=== PATIENT | male | born 1955 | race Caucasian/White ===

== ENCOUNTER → 2016-05-19 | Day surgery (SDC) | payer OTHER ==
[2016-05-18 15:03] VITALS: BMI 20.1
[~2016-05-19] MED LIST: BENZOCAINE SPRAY 100 APPLIC/CAN MUCOUS MEM ONE; BENZOCAINE SPRAY 100 APPLIC/CAN ONE; MIDAZOLAM 2 MG/2 ML VIAL IV ONE; SODIUM CHLORIDE 0.9% 1,000 ML IV SCH; SODIUM CHLORIDE 0.9% 250 ML IV ONE; fentaNYL (PF) 50 MCG/ML 2 ML AMP IV ONE
[2016-05-19 07:01] VITALS: RESP 18
--- NOTE | 2016-05-19 08:16 | ECHOT ---
DATE OF SERVICE: INDICATION: Ascending aortic aneurysm. PROCEDURE NOTE: After obtaining informed consent, transesophageal echocardiogram is performed in the left lateral position using an Omniplane probe. Local and IV sedation were obtained by 3 mg of Versed, 50 mcg of fentanyl and Xylocaine spray. Patient tolerated the procedure well without any obvious immediate complication. FINDINGS: 1. There is evidence of aneurysm of the sinus of Valsalva. At its widest dimension, it measures 4.6 cm. At the level of the aortic leaflets, the aorta measures 2.3 cm and ascending aorta measures 3.4 cm. It is a 3 leaflet valve and there is no evidence of aortic stenosis or regurgitation. 2. Mitral valve appears anatomically normal. There is mild mitral regurgitation noted. 3. Tricuspid valve appears normal. There is no evidence of stenosis or regurgitation. 4. Left ventricle has normal size and systolic function. 5. Left atrium, right atrium, right ventricle seen within normal limits. 6. Interatrial septum: There is no evidence of caej-jk-[id number] shunt by color flow Doppler or [id number] shunt by agitated saline contrast study. CONCLUSION: Sinus of Valsalva aneurysm measuring 4.6 cm is noted.
[2016-05-19 08:52] VITALS: BP 98/63; PULSE 81; TEMP 98
== END ==
LOC: CATHCVL 06:29
PROVIDERS: ATTEND Internal Medicine Cardiovascular Disease
DX: I71.2 Thoracic aortic aneurysm, without rupture (principal); F41.9 Anxiety disorder, unspecified; Z79.899 Other long term (current) drug therapy; Z87.891 Personal history of nicotine dependence
CPT/HCPCS: 93312; 93320; 93325; J2250; J3010

== ENCOUNTER → 2016-06-21 | Outpatient (CLI) | payer OTHER ==
[2016-06-22 15:39] LABS: HCV Qualitative Result Not detected (Not detected)
== END | disposition home or self-care (01) ==
LOC: LABWHC1 16:47
DX: B18.2 Chronic viral hepatitis C (principal)
CPT/HCPCS: 36415; 82105; 87522

== ENCOUNTER → 2017-04-04 | Outpatient (CLI) | payer OTHER ==
[2017-04-04 12:54] LABS: Bilirubin, Delta 0.1 mg/dL (0.0-0.2); Total Bilirubin 0.1 mg/dL (0.2-1.3); Total Protein 5.9 g/dL (6.3-8.2)
== END | disposition home or self-care (01) ==
LOC: LABWHC1 11:32
DX: R74.8 Abnormal levels of other serum enzymes (principal)
CPT/HCPCS: 36415; 80076

== ENCOUNTER → 2017-07-29 | Outpatient (CLI) | payer OTHER ==
--- NOTE | 2017-07-31 15:52 | PE ---
Nuclear medicine PET/CT HISTORY: Esophageal carcinoma, C 50.5, initial Patient received 14.2 mCi F-18 FDG intravenously in delayed scanning performed from the skull base to the mid thighs. Localization and attenuation correction CT scan was performed. No comparisons Neck and chest: There is diffuse hypermetabolic uptake involving the esophagus distally extending int o the region of the gastroesophageal junction, there is a hiatal hernia present. SUV is 10.6 and exte nds circumferentially, there is associated wall thickening. Mild uptake also present within the stoma ch, stomach wall is thickened. There is a lymph node present posterior to the midthoracic esophagus w hich shows associated hypermetabolic uptake, SUV is 5.6. Smaller node shows lesser uptake. At the lev el of the superior mediastinum there is a focus of hypermetabolic uptake, probable tiffani activity, BROWN V 4.5. Extensive emphysematous changes are present within the lungs. No pleural or pericardial effusion. Abdomen pelvis: No retroperitoneal adenopathy or hypermetabolic uptake. Uptake in the bowel is likely physiologic. There is uptake seen within the bladder which is likely physiologic, there is a focal c ystic area posterior to the bladder deep within the pelvis measuring 7.6 x 6 cm in size displacing th e bowel which shows hypermetabolic uptake similar to the bladder. Appears to be separate from the leon dder however. Prostate is enlarged. Diverticular changes associated with the sigmoid colon. Osseous structures: Bilateral spondylolysis at L5. Facet arthropathy in the lower lumbar spine. Degen erative disc changes are also present. Some hypermetabolic uptake present in the posterior aspect of the proximal right femur at the level of the greater trochanter without definite destructive lesion. SUV is 4.7. IMPRESSION: Esophageal carcinoma and metastatic disease. Indeterminate collection within the pelvis, question a large diverticulum.
== END | disposition home or self-care (01) ==
LOC: RADPETMAIN 11:46
PROVIDERS: ATTEND Internal Medicine Hematology & Oncology
DX: C15.5 Malignant neoplasm of lower third of esophagus (principal); C79.9 Secondary malignant neoplasm of unspecified site
CPT/HCPCS: 78815; A9552

== ENCOUNTER → 2017-08-08 | Outpatient (CLI) | payer OTHER ==
--- NOTE | 2017-08-09 01:34 | MR ---
EXAMINATION TYPE: MR hip RT wo con DATE OF EXAM: 08/08/2017 COMPARISON: NONE HISTORY: Esphogeal Cancer / Abnormal Scan Standard multiplanar, multisequence MRI departmental protocol Multiplanar, multisequence images of the right hip were acquired. . FINDINGS: On the T1 images there is a 5 x 3 cm area of decreased signal in the lateral aspect of the intertrochanteric right femur. I see no fracture line. There is on the STIR images edema around this lesion in the intertrochanteric femur. There is soft tissue edema posterior to the intertrochanteric femur that measures up to 15 mm in thickness. On the sagittal images there appears to be mass extensi on into the posterior soft tissues that measures 2 cm in thickness. IMPRESSION: Large lesion that appears to originate within the intertrochanteric right femur with tumor extension into the posterior and lateral soft tissues and consistent with metastatic disease in this patient wi th a history of esophageal cancer. No fracture seen. The size is probably not changed compared to the PET/CT scan of 07/29/2017.
== END | disposition home or self-care (01) ==
LOC: RADMRIMAIN 14:05
PROVIDERS: ATTEND Internal Medicine Hematology & Oncology
DX: C15.9 Malignant neoplasm of esophagus, unspecified (principal)

== ENCOUNTER → 2017-08-22 | Outpatient (CLI) | payer OTHER ==
--- NOTE | 2017-08-23 10:14 | ECHOF ---
Referral Reason:C15.5 Z01.818 esophogeal CA and Pre Chemo MEASUREMENTS -------- HEIGHT: 167.6 cm WEIGHT: 59.0 kg BP: RVIDd: 2.5 cm (< 3.3) IVSd: 0.7 cm (0.6 - 1.1) LVIDd: 4.1 cm (3.9 - 5.3) LVPWd: 0.7 cm (0.6 - 1.1) IVSs: 1.1 cm LVIDs: 1.5 cm LVPWs: 1.5 cm Ao Diam: 4.5 cm (2.0 - 3.7) AV Cusp: 2.2 cm (1.5 - 2.6) LA Diam: 2.2 cm (2.7 - 3.8) MV EXCURSION: 21.866 mm (> 18.000) MV EF SLOPE: 281 mm/s (70 - 150) EPSS: 0.2 cm MV E Elieser: 0.63 m/s MV DecT: 193 ms MV A Elieser: 0.56 m/s MV E/A Ratio: 1.12 RAP: 5.00 mmHg RVSP: 44.53 mmHg FINDINGS -------- Sinus rhythm. This was a technically difficult study with suboptimal apical views. The left ventricular size is normal. Left ventricular wall thickness is normal. Overall left vent ricular systolic function is normal with, an EF between 55 - 60 %. The right ventricle is mildly enlarged. The left atrium is normal in size. The right atrium is normal in size. Aortic valve is trileaflet and is mildly thickened. The mitral valve leaflets are mildly thickened. Mild mitral regurgitation is present. Moderate tricuspid regurgitation present. There is mild pulmonary hypertension. The right ventric ular systolic pressure, as measured by Doppler, is 44.53mmHg. Pulmonic valve appears structurally normal. The aortic root is moderately dilated measuring 4.5 cm. CONCLUSIONS -------- 1. Sinus rhythm. 2. This was a technically difficult study with suboptimal apical views. 3. The left ventricular size is normal. 4. Left ventricular wall thickness is normal. 5. Overall left ventricular systolic function is normal with, an EF between 55 - 60 %. 6. The right ventricle is mildly enlarged. 7. The left atrium is normal in size. 8. The right atrium is normal in size. 9. Aortic valve is trileaflet and is mildly thickened. 10. The mitral valve leaflets are mildly thickened. 11. Mild mitral regurgitation is present. 12. Moderate tricuspid regurgitation present. 13. There is mild pulmonary hypertension. 14. The right ventricular systolic pressure, as measured by Doppler, is 44.53mmHg. 15. Pulmonic valve appears structurally normal. 16. The aortic root is moderately dilated measuring 4.5 cm. OCCUPATIONAL THERAPY ASSISTANT: Deborah Cunningham RDCS
== END | disposition home or self-care (01) ==
LOC: RADECHMAIN 13:10
PROVIDERS: ATTEND Internal Medicine Hematology & Oncology
DX: Z01.818 Encounter for other preprocedural examination (principal); I27.20 Pulmonary hypertension, unspecified; I08.1 Rheumatic disorders of both mitral and tricuspid valves; C15.5 Malignant neoplasm of lower third of esophagus
CPT/HCPCS: 93306

== ENCOUNTER 2017-08-24 13:00 | Day surgery (SDC) | payer OTHER ==
[2017-08-22 12:03] VITALS: BMI 20.9
[~2017-08-24 13:00] MED LIST changes: -BENZOCAINE SPRAY 100 APPLIC/CAN MUCOUS MEM ONE; -BENZOCAINE SPRAY 100 APPLIC/CAN ONE; +HEPARIN SODIUM,PORCINE 5,000 UNIT/ML 1 ML VIAL SQ ONE; +HYDROmorphone 0.5 MG/0.5 ML SYRINGE IVP PRN; +LACTATED RINGERS 1,000 ML IV SCH; +LIDOCAINE 1% 20 ML VIAL (10MG/ML) FOR IV START INTRADERMA PRN; -MIDAZOLAM 2 MG/2 ML VIAL IV ONE; +MORPHINE SULFATE 4 MG/ML SYRINGE IV PRN; +ONDANSETRON 4 MG/2 ML VIAL IVP PRN; +Pre Op ABX Message 1 EACH MISC MISCELLANE ONE; -SODIUM CHLORIDE 0.9% 1,000 ML IV SCH; -SODIUM CHLORIDE 0.9% 250 ML IV ONE; -fentaNYL (PF) 50 MCG/ML 2 ML AMP IV ONE
[2017-08-24] MEDS ORDERED: LIDOCAINE 1% 20 ML VIAL (10MG/ML) FOR IV START INTRADERMA ONE (13:30)
[2017-08-24] MEDS ORDERED: LIDOCAINE 1% INJ 10MG/ML (20 ML MDV) SQ ONE ×2 (13:48)
[2017-08-24] MEDS ORDERED: PROPOFOL 10 MG/ML 20 ML VIAL IV ONE (14:31)
[2017-08-24] MEDS ORDERED: fentaNYL (PF) 50 MCG/ML 2 ML AMP ONE (14:31)
[2017-08-24] MEDS ORDERED: MIDAZOLAM 2 MG/2 ML VIAL ONE (14:31)
[2017-08-24] MEDS ORDERED: LACTATED RINGERS 1,000 ML IV ONE ×2 (14:45)
[2017-08-24] MEDS ORDERED: HYDROcodone/APAP 5-325MG 1 EACH TAB PO PRN (15:13)
[2017-08-24] MEDS ORDERED: NALOXONE 0.4 MG/ML 1 ML VIAL IV PRN (15:13)
--- NOTE | 2017-08-24 15:15 | P.OP ---
Date of Procedure: 08/24/17 Procedure(s) Performed: PREOPERATIVE DIAGNOSIS: Esophageal cancer POSTOPERATIVE DIAGNOSIS: Same PROCEDURE: Port-A-Cath placement SURGEON: Samantha EBL: Minimal ANESTHESIA: Sedation COMPLICATIONS: None OPERATIVE PROCEDURE: Patient was brought and placed on the operative table in the supine position. The patient was sedated per anesthesia that time. The chest and neck were prepped and draped in usual sterile fashion. The ultrasound probe was used to identify the location of the right internal jugular vein. The skin was localized with lidocaine. The Seldinger needle was advanced into the IJ under ultrasound guidance. The wire was advanced through the needle under fluoroscopic guidance into the superior vena cava. A port pocket was created in the right infraclavicular location. The catheter was tunneled from the wire entrance site to the port pocket. The port was then connected to the catheter. The dilator introducer was threaded over the guidewire. The guidewire and dilator were then removed. The catheter was advanced through the introducer and introducer was then removed. The tip was seen to be in the right atrial junction. Port was flushed with both saline and a Hep-Lock solution. There was good flow both in and out of the port. The port was sutured in underlying tissues using 3-0 silk sutures. The subcutaneous tissues were reapproximated using 3-0 Vicryl sutures and the skin at both locations using 4-0 Monocryl sutures. Steri-Strips and sterile dressings then applied. DISPOSITION: Stable to recovery room
[2017-08-24 15:36] VITALS: TEMP 98.6
--- NOTE | 2017-08-24 16:12 | XR ---
EXAMINATION TYPE: XR chest 1V confirm line [facility] [place] DATE OF EXAM: 08/24/2017 COMPARISON: Prior chest 05/04/2016 HISTORY: Status post Port-A-Cath placement TECHNIQUE: Single frontal view of the chest is obtained. FINDINGS: Right-sided Port-A-Cath is present, port is in the right pectoral region, there is a jugul ar puncture, distal tip of the catheter is overlying the region of the superior vena cava. No evident pneumothorax or pleural effusion. No other interval change. IMPRESSION: No evident complication status post central venous catheter placement
--- NOTE | 2017-08-24 16:17 | FL ---
Fluoroscopy HISTORY: Port-A-Cath insertion 14 seconds fluoroscopy time supplied to the referring clinician. 1 intraoperative C-arm images docum ent the procedure. See dictated report from general surgery.
[2017-08-24 16:25] VITALS: RESP 16
[2017-08-24 16:40] VITALS: BP 106/71; PULSE 94
== END 2017-08-24 17:12 | disposition home or self-care (01) ==
LOC: OR 13:00
PROVIDERS: ATTEND Surgery
DX: C15.9 Malignant neoplasm of esophagus, unspecified (principal); J44.9 Chronic obstructive pulmonary disease, unspecified; Z79.899 Other long term (current) drug therapy; Z87.891 Personal history of nicotine dependence
CPT/HCPCS: 77001; 36561; C1788; J2250; J1644; J2405; J2001; J3010; J1642; J2704

== ENCOUNTER 2017-08-29 15:55 | Inpatient (IN) | payer OTHER ==
[2017-08-29 16:25] LABS: Glucose,Whole Blood 128 mg/dL (75-99)
[2017-08-29] MEDS ORDERED: SODIUM CHLORIDE 0.9% 1,000 ML IV STA (16:25)
--- NOTE | 2017-08-29 16:28 | ED ---
General Adult HPI - General Chief complaint: Recheck/Abnormal Lab/Rx Stated complaint: Dehydrted, Weakness, NV, Low BP Time Seen by Provider: 08/29/17 16:18 Source: patient, RN notes reviewed Mode of arrival: ambulatory Limitations: no limitations - History of Present Illness Initial comments: Patient is a pleasant 62-year-old male presenting to the emergency department for generalized weakness. Onset of symptoms was yesterday. Patient felt lightheaded. Patient has a known history of esophageal and cancer. Patient is unclear which one is primary. Patient is currently undergoing radiation treatment to the right hip. Patient is planned to start in the next week. Patient has decreased appetite and decreased oral intake. Patient has had some nausea. Patient was at oncology and recommended come to the emergency department secondary to low blood pressure. - Related Data Home Medications Medication Instructions Recorded Confirmed Albuterol Inhaler [Ventolin Hfa 1 - 2 puff INHALATION Q6HR PRN 05/18/16 08/29/17 Inhaler] ALPRAZolam [Xanax] 0.25 mg PO BID PRN 08/22/17 08/29/17 Dexamethasone See Taper PO DIRECTED 08/29/17 08/29/17 Diazepam [Valium] 10 mg PO Q8H PRN 08/29/17 08/29/17 Mirtazapine [Remeron] 45 mg PO HS 08/29/17 08/29/17 Omeprazole [PriLOSEC] 40 mg PO DAILY 08/29/17 08/29/17 oxyCODONE-APAP 10-325MG [Percocet 1 tab PO Q6HR PRN 08/29/17 08/29/17 10-325 mg] Allergies Allergy/AdvReac Type Severity Reaction Status Date / Time No Known Allergies Allergy Verified 08/29/17 16:46 Review of Systems ROS Statement: Those systems with pertinent positive or pertinent negative responses have been documented in the HPI. ROS Other: All systems not noted in ROS Statement are negative. Constitutional: Denies: fever Eyes: Denies: eye pain ENT: Denies: ear pain Respiratory: Denies: cough Cardiovascular: Denies: chest pain Endocrine: Reports: fatigue Gastrointestinal: Reports: nausea Genitourinary: Denies: dysuria Musculoskeletal: Denies: back pain Skin: Denies: rash Neurological: Reports: weakness (Generalized) Past Medical History Past Medical History: Asthma, Cancer, COPD, GERD/Reflux, Skin Disorder Additional Past Medical History / Comment(s): generalized rash on trunk, past hx. collapsed lung 5 yrs. ago History of Any Multi-Drug Resistant Organisms: None Reported Past Surgical History: Hernia Repair Additional Past Surgical History / Comment(s): colonoscopy Past Anesthesia/Blood Transfusion Reactions: No Reported Reaction Past Psychological History: Anxiety, Depression Smoking Status: Former smoker Past Alcohol Use History: None Reported Past Drug Use History: None Reported - Past Family History Mother Family Medical History: Cancer, CVA/TIA General Exam Limitations: no limitations General appearance: alert, in no apparent distress Head exam: Present: atraumatic Eye exam: Present: normal appearance, PERRL ENT exam: Present: mucous membranes dry Neck exam: Present: normal inspection Respiratory exam: Present: normal lung sounds bilaterally Cardiovascular Exam: Present: tachycardia GI/Abdominal exam: Present: soft. Absent: tenderness Extremities exam: Present: normal inspection Neurological exam: Present: alert, CN II-XII intact. Absent: motor sensory deficit Expanded Motor strength exam: RUE: 5, LUE: 5, RLE: 5, LLE: 5 Psychiatric exam: Present: normal affect, normal mood Skin exam: Present: normal color Course Vital Signs 08/29/17 08/29/17 08/29/17 15:59 16:28 17:06 Temperature 98.5 F Pulse Rate 105 H 93 92 Respiratory 20 18 18 Rate Blood Pressure 75/49 95/63 102/67 O2 Sat by Pulse 99 98 100 Oximetry 08/29/17 08/29/17 08/29/17 17:50 18:00 18:09 Temperature 98.2 F 98 F 97.8 F Pulse Rate 88 89 89 Respiratory 18 18 18 Rate Blood Pressure 95/60 91/62 97/65 O2 Sat by Pulse 98 100 Oximetry 08/29/17 08/29/17 08/29/17 18:25 18:40 18:54 Temperature 98.1 F 98.2 F 98.4 F Pulse Rate 95 92 94 Respiratory 18 18 18 Rate Blood Pressure 107/70 99/64 97/64 O2 Sat by Pulse Oximetry EKG Findings - EKG Comments: EKG Findings:: Sinus tachycardia 102. SC 124. QRS 84. QT 362. QTC 471. Normal axis. Low QRS voltage. No acute ST change. Medical Decision Making - Medical Decision Making Patient reevaluated and resting comfortably in bed. Patient states he is starting to feel better. Blood pressure has improved. Patient updated on results and plan. Patient states he did have several episodes of coffee-ground emesis several days ago. Case was discussed in detail with Dr. Roque, who will admit for Dr. Pires. Case is also discussed with Dr. Castellon, who will consult for Dr. Pedroza. - Lab Data Result diagrams: 08/29/17 16:27 08/29/17 16:27 Lab Results 08/29/17 08/29/17 08/29/17 Range/Units 16:08 16:27 16:27 WBC 14.6 H (3.8-10.6) k/uL RBC 2.34 L (4.30-5.90) m/uL Hgb 6.0 L* (13.0-17.5) gm/dL Hct 19.6 L* (39.0-53.0) % MCV 83.9 (80.0-100.0) fL MCH 25.5 (25.0-35.0) pg MCHC 30.4 L (31.0-37.0) g/dL RDW 16.6 H (11.5-15.5) % Plt Count 306 (150-450) k/uL Neutrophils % 97 % Lymphocytes % 2 % Monocytes % 1 % Eosinophils % 0 % Basophils % 0 % Neutrophils # 14.1 H (1.3-7.7) k/uL Lymphocytes # 0.3 L (1.0-4.8) k/uL Monocytes # 0.2 (0-1.0) k/uL Eosinophils # 0.0 (0-0.7) k/uL Basophils # 0.0 (0-0.2) k/uL Hypochromasia Marked Poikilocytosis Slight Anisocytosis Slight PT (9.0-12.0) sec INR (<1.2) APTT (22.0-30.0) sec Sodium (137-145) mmol/L Potassium (3.5-5.1) mmol/L Chloride (98-107) mmol/L Carbon Dioxide (22-30) mmol/L Anion Gap mmol/L BUN (9-20) mg/dL Creatinine (0.66-1.25) mg/dL Est GFR (CKD-EPI)AfAm (>60 ml/min/1.73 sqM) Est GFR (CKD-EPI)NonAf (>60 ml/min/1.73 sqM) Glucose (74-99) mg/dL POC Glucose (mg/dL) 128 H (75-99) mg/dL POC Glu [employer] Imp[employer] ID Amanda Haro Calcium (8.4-10.2) mg/dL Phosphorus (2.5-4.5) mg/dL Magnesium (1.6-2.3) mg/dL Total Bilirubin (0.2-1.3) mg/dL AST (17-59) U/L ALT (21-72) U/L Alkaline Phosphatase (38-126) U/L Total Creatine Kinase 47 L (55-170) U/L CK-MB (CK-2) 0.9 (0.0-2.4) ng/mL CK-MB (CK-2) Rel Index 1.9 Troponin I <0.012 (0.000-0.034) ng/mL Total Protein (6.3-8.2) g/dL Albumin (3.5-5.0) g/dL TSH (0.465-4.680) mIU/L Free T4 (0.78-2.19) ng/dL Free T3 pg/mL (2.8-5.3) pg/ml Blood Type Blood Type Recheck Antibody Screen Crossmatch Spec Expiration Date 08/29/17 08/29/17 08/29/17 Range/Units 16:27 16:27 16:27 WBC (3.8-10.6) k/uL RBC (4.30-5.90) m/uL Hgb (13.0-17.5) gm/dL Hct (39.0-53.0) % MCV (80.0-100.0) fL MCH (25.0-35.0) pg MCHC (31.0-37.0) g/dL RDW (11.5-15.5) % Plt Count (150-450) k/uL Neutrophils % % Lymphocytes % % Monocytes % % Eosinophils % % Basophils % % Neutrophils # (1.3-7.7) k/uL Lymphocytes # (1.0-4.8) k/uL Monocytes # (0-1.0) k/uL Eosinophils # (0-0.7) k/uL Basophils # (0-0.2) k/uL Hypochromasia Poikilocytosis Anisocytosis PT 9.5 (9.0-12.0) sec INR 0.9 (<1.2) APTT 20.9 L (22.0-30.0) sec Sodium 139 (137-145) mmol/L Potassium 4.7 (3.5-5.1) mmol/L Chloride 102 (98-107) mmol/L Carbon Dioxide 21 L (22-30) mmol/L Anion Gap 16 mmol/L BUN 24 H (9-20) mg/dL Creatinine 0.80 (0.66-1.25) mg/dL Est GFR (CKD-EPI)AfAm >90 (>60 ml/min/1.73 sqM) Est GFR (CKD-EPI)NonAf >90 (>60 ml/min/1.73 sqM) Glucose 120 H (74-99) mg/dL POC Glucose (mg/dL) (75-99) mg/dL POC Glu [employer] ID Calcium 9.2 (8.4-10.2) mg/dL Phosphorus 4.8 H (2.5-4.5) mg/dL Magnesium 1.9 (1.6-2.3) mg/dL Total Bilirubin <0.1 L (0.2-1.3) mg/dL AST 18 (17-59) U/L ALT 18 L (21-72) U/L Alkaline Phosphatase 40 (38-126) U/L Total Creatine Kinase (55-170) U/L CK-MB (CK-2) (0.0-2.4) ng/mL CK-MB (CK-2) Rel Index Troponin I (0.000-0.034) ng/mL Total Protein 5.9 L (6.3-8.2) g/dL Albumin 3.8 (3.5-5.0) g/dL TSH 0.973 (0.465-4.680) mIU/L Free T4 1.58 (0.78-2.19) ng/dL Free T3 pg/mL 4.0 (2.8-5.3) pg/ml Blood Type O Positive Blood Type Recheck No Antibody Screen NEGATIVE Crossmatch See Detail Spec Expiration Date 09/01/2017 - 2903 - Radiology Data Radiology results: image reviewed (Chest x-ray shows no active cardiopulmonary disease.) Disposition Clinical Impression: Anemia, Upper GI hemorrhage Disposition: ADMITTED IP TO THIS HOSP Condition: Serious Is patient prescribed a controlled substance at d/c from ED?: No Referrals: Sri Acosta MD [Primary Care Provider] - 1-2 days Decision Time: 19:22
[2017-08-29 16:39] LABS: Anisocytosis Slight; Basophils % (A) 0 %; Eosinophils % (A) 0 %; Hypochromasia Marked; Lymphocytes # (A) 0.3 k/uL (1.0-4.8); Lymphocytes % (A) 2 %; MCH 25.5 pg (25.0-35.0); MCHC 30.4 g/dL (31.0-37.0); MCV 83.9 fL (80.0-100.0); Mean Platelet Volume 8.2; Monocytes # (A) 0.2 k/uL (0-1.0); Monocytes % (A) 1 %; Neutrophils # (A) 14.1 k/uL (1.3-7.7); Neutrophils % (A) 97 %; Platelet Count 306 k/uL (150-450); Poikilocytosis Slight; RBC 2.34 m/uL (4.30-5.90); RDW 16.6 % (11.5-15.5); WBC 14.6 k/uL (3.8-10.6)
[2017-08-29 16:47] LABS: HCT 19.6 % (39.0-53.0)
[2017-08-29 16:54] LABS: ALT 18 U/L (21-72); AST 18 U/L (17-59); Albumin 3.8 g/dL (3.5-5.0); Alkaline Phosphatase 40 U/L (38-126); Anion Gap 16 mmol/L; Blood Urea Nitrogen 24 mg/dL (9-20); Calcium 9.2 mg/dL (8.4-10.2); Carbon Dioxide 21 mmol/L (22-30); Chloride 102 mmol/L (98-107); Glucose 120 mg/dL (74-99); Magnesium 1.9 mg/dL (1.6-2.3); Phosphorus 4.8 mg/dL (2.5-4.5); Potassium 4.7 mmol/L (3.5-5.1); Sodium 139 mmol/L (137-145); Total Bilirubin <0.1 mg/dL (0.2-1.3); Total Protein 5.9 g/dL (6.3-8.2)
[2017-08-29 16:56] LABS: INR 0.9 (<1.2); Prothrombin Time 9.5 sec (9.0-12.0)
[2017-08-29 16:57] LABS: Partial Thromboplastin Time 20.9 sec (22.0-30.0)
[2017-08-29 16:59] LABS: Creatine Kinase 47 U/L (55-170)
[2017-08-29 17:08] LABS: T4, Free (Free Thyroxine) 1.58 ng/dL (0.78-2.19)
--- NOTE | 2017-08-29 17:09 | XR ---
EXAMINATION TYPE: XR chest 2V DATE OF EXAM: 08/29/2017 COMPARISON: 08/24/2017 HISTORY: Weakness TECHNIQUE: Frontal and lateral views of the chest are obtained. FINDINGS: There is no heart failure nor confluent pneumonic infiltrate. There are chest leads. Costo phrenic angles are clear. Heart size is normal. Bony thorax appears intact. IMPRESSION: No active cardiopulmonary disease. No change.
[2017-08-29 17:12] LABS: Creatine Kinase MB 0.9 ng/mL (0.0-2.4); Troponin I <0.012 ng/mL (0.000-0.034)
[2017-08-29] MEDS ORDERED: NALOXONE 0.4 MG/ML 1 ML VIAL IV PRN (19:22)
[2017-08-29] MEDS ORDERED: PANTOPRAZOLE 40 MG/10 ML VIAL IV SCH (19:30)
[2017-08-29] MEDS ORDERED: LORazepam 2 MG/ML INJ IV PRN ×3 (21:29)
[2017-08-29] MEDS ORDERED: NON-FORMULARY DRUG (Omeprazole 40 MG) PO SCH (21:30)
[2017-08-29] MEDS: SODIUM CHLORIDE 0.9% 1,000 ML IV SCH (22:29)
[2017-08-29] MEDS: PANTOPRAZOLE 40 MG/10 ML VIAL IVP SCH (22:31)
[2017-08-29] MEDS: MIRTAZAPINE 45 MG TABLET PO SCH (22:31)
[2017-08-30] MEDS: oxyCODONE-APAP 10-325MG 1 EACH TAB PO PRN ×3 (00:30→12:51)
[2017-08-30 00:44] LABS: Appearance,Urine Clear (Clear); Bilirubin,Urine Negative (Negative); Blood,Urine Negative (Negative); Color,Urine Light Yellow; Glucose,Urine (UA) Negative (Negative); Ketones,Urine 1+ (Negative); Leukocyte Esterase,Urine Negative (Negative); Nitrite,Urine Negative (Negative); PH, Urine 6.5 (5.0-8.0); Protein,Urine Negative (Negative); Specific Gravity,Urine 1.009 (1.001-1.035); Urobilinogen,Urine <2.0 mg/dL (<2.0)
[2017-08-30] MEDS: SODIUM CHLORIDE 0.9% 1,000 ML IV SCH ×2 (06:11→08:30)
[2017-08-30 06:52] LABS: Basophils % (A) 0 %; Eosinophils % (A) 0 %; HCT 25.1 % (39.0-53.0); Hypochromasia Slight; Lymphocytes # (A) 0.7 k/uL (1.0-4.8); Lymphocytes % (A) 14 %; MCH 26.6 pg (25.0-35.0); MCHC 31.8 g/dL (31.0-37.0); MCV 83.6 fL (80.0-100.0); Mean Platelet Volume 7.8; Monocytes # (A) 0.4 k/uL (0-1.0); Monocytes % (A) 8 %; Neutrophils # (A) 3.6 k/uL (1.3-7.7); Neutrophils % (A) 75 %; Platelet Count 212 k/uL (150-450); Poikilocytosis Moderate; RDW 15.8 % (11.5-15.5); WBC 4.8 k/uL (3.8-10.6)
[2017-08-30] MEDS: PANTOPRAZOLE 40 MG/10 ML VIAL IVP SCH ×2 (08:30→20:19)
[2017-08-30] MEDS: ALPRAZolam 0.25 MG TAB PO PRN (10:32)
[2017-08-30 11:45] LABS: Reticulocyte % 2.8 % (0.5-2.0)
--- NOTE | 2017-08-30 11:55 | P.HPIM ---
History of Present Illness H&P Date: 08/30/17 Alton Martinez is a 62-year-old male presenting to [facility] emergency department for generalized weakness. Patient felt lightheaded. 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 Patient is currently undergoing radiation treatment to the right hip. Patient started having some bloody vomiting 2 days ago, he was evaluated in the emergency room hemoglobin was down to 62 units of red blood cells transfusion were ordered and patient was admitted to telemetry floor gastroenterology consultation was requested. Also oncology consultation was requested for follow -up. Patient had a right subclavian port placed recently, patient has not started chemotherapy yet. He denies any previous history of coronary artery disease or congestive heart failure denies any history of diabetes or any lung disease. He states that he has a prolonged history of smoking he quit last months, he used to drink beer occasionally he quit drinking recently. Past Medical History Past Medical History: Asthma, Cancer, COPD, GERD/Reflux, Skin Disorder Additional Past Medical History / Comment(s): , past hx. collapsed lung 5 yrs, generalized rash on trunk ago, dx with esophageal CA with mets to bone right hip about 3 weeks ago, recieving radiation last tx 08/29/17 History of Any Multi-Drug Resistant Organisms: None Reported Past Surgical History: Hernia Repair Additional Past Surgical History / Comment(s): colonoscopy, EGD Past Anesthesia/Blood Transfusion Reactions: No Reported Reaction Past Psychological History: Anxiety, Depression Smoking Status: Former smoker Past Alcohol Use History: None Reported Additional Past Alcohol Use History / Comment(s): quit smoking 1 month ago, smoked for 25 yrs.-still an occasional cigarette sometimes up to 1/2 pack a day Past Drug Use History: None Reported Additional Drug Use History / Comment(s): occasional drinking. patient states sometimes 2-3 beers a night, sometimes more and sometimes less - Past Family History Mother Family Medical History: Cancer, CVA/TIA Medications and Allergies Home Medications Medication Instructions Recorded Confirmed Type Albuterol Inhaler [Ventolin Hfa 1 - 2 puff INHALATION Q6HR PRN 05/18/16 History Inhaler] ALPRAZolam [Xanax] 0.25 mg PO BID PRN 08/22/17 08/29/17 History Dexamethasone See Taper PO DIRECTED 08/29/17 08/29/17 History Diazepam [Valium] 10 mg PO Q8H PRN 08/29/17 08/29/17 History Mirtazapine [Remeron] 45 mg PO HS 08/29/17 08/29/17 History Omeprazole [PriLOSEC] 40 mg PO DAILY 08/29/17 08/29/17 History oxyCODONE-APAP 10-325MG [Percocet 1 tab PO Q6HR PRN 08/29/17 08/29/17 History 10-325 mg] Prochlorperazine [Compazine] 10 mg PO Q6H PRN #50 tab 08/30/17 Rx Allergies Allergy/AdvReac Type Severity Reaction Status Date / Time No Known Allergies Allergy Verified 08/29/17 16:46 Physical Exam Vitals: Vital Signs Temp Pulse Pulse Resp BP BP Pulse Ox 08/30/17 04:00 98.0 F 84 18 96/72 08/30/17 00:26 97.0 F L 95 18 104/68 96 08/30/17 00:00 97.6 F 88 18 106/68 97 08/29/17 23:18 97.9 F 86 18 108/61 99 08/29/17 22:34 98.4 F 87 18 102/62 99 08/29/17 22:14 98.2 F 86 18 103/64 98 08/29/17 22:04 98.8 F 88 18 102/61 99 08/29/17 21:54 97.0 F L 86 18 104/62 98 08/29/17 21:00 97.0 F L 84 18 118/72 100 08/29/17 20:26 97.8 F 82 18 109/71 100 08/29/17 19:54 97.8 F 87 18 103/67 08/29/17 18:54 98.4 F 94 18 97/64 08/29/17 18:40 98.2 F 92 18 99/64 08/29/17 18:25 98.1 F 95 18 107/70 08/29/17 18:09 97.8 F 89 18 97/65 08/29/17 18:00 98 F 89 18 91/62 100 08/29/17 17:50 98.2 F 88 18 95/60 98 08/29/17 17:06 92 18 102/67 100 08/29/17 16:28 93 18 95/63 98 08/29/17 15:59 98.5 F 105 H 20 75/49 99 Intake and Output 08/29/17 08/30/17 08/30/17 22:59 06:59 14:59 Intake Total 310 880 Output Total 425 Balance 310 455 Intake: Intake, IV Titration 880 Amount Sodium Chloride 0.9% 1, 880 000 ml @ 110 mls/hr IV . Q9H6M [facility] Rx#:[id number] Blood Product 310 0 Rc As-1 Unit 0 0 [id number] Rc As-1 Unit 310 [id number] Output: Urine 425 Other: Voiding Method Toilet Toilet Urinal Urinal Weight 58.967 kg 50.5 kg 54.8 kg In general patient is alert and oriented 3 in no apparent distress HEENT head normocephalic and atraumatic Neck is supple no JVD no goiter no lymphadenopathy Chest exam reveals a few scattered rhonchi and mild wheezing Cardiac exam reveals regular heart sounds S1 and S2 no gallops no murmurs Abdomen is soft nontender no organomegaly with normal bowel sounds Extremity exam reveals no edema no cyanosis or clubbing Neurological examination reveals no gross focal deficit Results CBC & Chem 7: 08/30/17 06:35 08/29/17 16:27 Labs: Abnormal Lab Results - Last 24 Hours (Table) 08/29/17 08/29/17 08/29/17 Range/Units 16:08 16:27 16:27 WBC 14.6 H (3.8-10.6) k/uL RBC 2.34 L (4.30-5.90) m/uL Hgb 6.0 L* (13.0-17.5) gm/dL Hct 19.6 L* (39.0-53.0) % MCHC 30.4 L (31.0-37.0) g/dL RDW 16.6 H (11.5-15.5) % Neutrophils # 14.1 H (1.3-7.7) k/uL Lymphocytes # 0.3 L (1.0-4.8) k/uL APTT (22.0-30.0) sec Carbon Dioxide (22-30) mmol/L BUN (9-20) mg/dL Glucose (74-99) mg/dL POC Glucose (mg/dL) 128 H (75-99) mg/dL Phosphorus (2.5-4.5) mg/dL Total Bilirubin (0.2-1.3) mg/dL ALT (21-72) U/L Total Creatine Kinase 47 L (55-170) U/L Total Protein (6.3-8.2) g/dL Urine Ketones (Negative) Crossmatch 08/29/17 08/29/17 08/29/17 Range/Units 16:27 16:27 16:27 WBC (3.8-10.6) k/uL RBC (4.30-5.90) m/uL Hgb (13.0-17.5) gm/dL Hct (39.0-53.0) % MCHC (31.0-37.0) g/dL RDW (11.5-15.5) % Neutrophils # (1.3-7.7) k/uL Lymphocytes # (1.0-4.8) k/uL APTT 20.9 L (22.0-30.0) sec Carbon Dioxide 21 L (22-30) mmol/L BUN 24 H (9-20) mg/dL Glucose 120 H (74-99) mg/dL POC Glucose (mg/dL) (75-99) mg/dL Phosphorus 4.8 H (2.5-4.5) mg/dL Total Bilirubin <0.1 L (0.2-1.3) mg/dL ALT 18 L (21-72) U/L Total Creatine Kinase (55-170) U/L Total Protein 5.9 L (6.3-8.2) g/dL Urine Ketones (Negative) Crossmatch See Detail 08/30/17 08/30/17 Range/Units 00:37 06:35 WBC (3.8-10.6) k/uL RBC 3.00 L (4.30-5.90) m/uL Hgb 8.0 L D (13.0-17.5) gm/dL Hct 25.1 L (39.0-53.0) % MCHC (31.0-37.0) g/dL RDW 15.8 H (11.5-15.5) % Neutrophils # (1.3-7.7) k/uL Lymphocytes # 0.7 L (1.0-4.8) k/uL APTT (22.0-30.0) sec Carbon Dioxide (22-30) mmol/L BUN (9-20) mg/dL Glucose (74-99) mg/dL POC Glucose (mg/dL) (75-99) mg/dL Phosphorus (2.5-4.5) mg/dL Total Bilirubin (0.2-1.3) mg/dL ALT (21-72) U/L Total Creatine Kinase (55-170) U/L Total Protein (6.3-8.2) g/dL Urine Ketones 1+ H (Negative) Crossmatch Thrombosis Risk Factor Assmnt - Choose All That Apply Any of the Below Risk Factors Present?: Yes Each Factor Represents 1 point: Abnormal pulmonary function (COPD) Other Risk Factors: Yes Each Risk Factor Represents 2 Points: Age 61-74 years Other congenital or acquired thrombophilia - If yes, enter type in comment: No Thrombosis Risk Factor Assessment Total Risk Factor Score: 3 Thrombosis Risk Factor Assessment Level: Moderate Risk Assessment and Plan Plan: #1 upper gastrointestinal bleeding #2 underlying history of his esophageal cancer diagnosed 2 month ago #3 metastatic disease to the right hip with recent radiation treatment to the right #4 recent placement of a right subclavian port, patient has not received any chemotherapy yet. #5 underlying history of depression and anxiety disorder maintained on Remeron, Valium, and Xanax At this time patient is admitted to telemetry floor 2 units of red blood cell transfusion were ordered, gastroenterology consultation was requested Also oncology consultation was requested for follow-up Continue to check hemoglobin closely and transfuse red blood cells as needed Plans for EGD tomorrow Will follow closely
--- NOTE | 2017-08-30 12:01 | P.CONS ---
History of Present Illness - Reason for Consult Consult date: 08/30/17 Oncology Care, metaststic esophageal Requesting physician: Eren Cooper - Chief Complaint coffee ground emesis, weakness - History of Present Illness Mr. Martinez is a very pleasant male pt of Dr. Pedroza who presented with progressive dysphagia over 3-4 months period, he underwent EGD on 07/19/17 which revealed large esophageal mass at distal esophagus, pathology was positive for invasive adenocarcinoma, HER2 was 2+, FISH was positive, 07/31/17, staging PET revealed suspicious uptake in large area at distal esophagus, mediastinal nodes and there was a suspicious area at right femur, 08/09/17, MRI of right hip confirmed a 5cm area suspicious of metastatic disease at right intertrochanteric femur associated with soft tissue mass, pt did have pain in the area. He started palliative XRT to right femur on 08/14/17 he thinks he has 2 or 3 more planned treatments, he states relief from the pain. On 08/[address] Pedroza and they discussed stage IV disease, treatment with palliative intent. He is due to start chemotherapy next week. Plan was to delay feeding tube placement as the pt was able to maintain oral intake. He was at radiation yesterday and was noted to be very weak and hypotensive so, he was sent to to ER for evaluation. Pt then admitted to coffee ground emesis x 1 days at least 3 -4 times. He was found to be anemic, Hgb 6, s/p 2 units PRBCs with appropriate increase in Hgb to 8, denies any more emesis as of today. He has mild odynophagia, the pain is midsternal, denied fevers, palpitations, mild SOB , no cough, abd pain, distension, hematuria, black or bloody stool, diarrhea or constipation, swelling or other bleeding or pain. He is independently ambulatory. Review of Systems 10 point ROS as stated in HPI Past Medical History Past Medical History: Asthma, Cancer, COPD, GERD/Reflux, Skin Disorder Additional Past Medical History / Comment(s): , past hx. collapsed lung 5 yrs, generalized rash on trunk ago, dx with esophageal CA with mets to bone right hip about 3 weeks ago, recieving radiation last tx 08/29/17 History of Any Multi-Drug Resistant Organisms: None Reported Past Surgical History: Hernia Repair Additional Past Surgical History / Comment(s): colonoscopy, EGD, right chest wall medi-port Past Anesthesia/Blood Transfusion Reactions: No Reported Reaction Past Psychological History: Anxiety, Depression Smoking Status: Former smoker Past Alcohol Use History: None Reported Additional Past Alcohol Use History / Comment(s): quit smoking 1 month ago, smoked for 25 yrs.-still an occasional cigarette sometimes up to 1/2 pack a day Past Drug Use History: None Reported Additional Drug Use History / Comment(s): occasional drinking. patient states sometimes 2-3 beers a night, sometimes more and sometimes less - Past Family History Mother Family Medical History: Cancer, CVA/TIA Medications and Allergies Home Medications Medication Instructions Recorded Confirmed Type Albuterol Inhaler [Ventolin Hfa 1 - 2 puff INHALATION Q6HR PRN 05/18/16 History Inhaler] ALPRAZolam [Xanax] 0.25 mg PO BID PRN 08/22/17 08/29/17 History Dexamethasone See Taper PO DIRECTED 08/29/17 08/29/17 History Diazepam [Valium] 10 mg PO Q8H PRN 08/29/17 08/29/17 History Mirtazapine [Remeron] 45 mg PO HS 08/29/17 08/29/17 History Omeprazole [PriLOSEC] 40 mg PO DAILY 08/29/17 08/29/17 History oxyCODONE-APAP 10-325MG [Percocet 1 tab PO Q6HR PRN 08/29/17 08/29/17 History 10-325 mg] Prochlorperazine [Compazine] 10 mg PO Q6H PRN #50 tab 08/30/17 Rx Allergies Allergy/AdvReac Type Severity Reaction Status Date / Time No Known Allergies Allergy Verified 08/29/17 16:46 Physical Exam Vitals: Vital Signs Temp Pulse Pulse Resp BP BP Pulse Ox 08/30/17 11:48 96.9 F L 72 14 141/79 98 08/30/17 04:00 98.0 F 84 18 96/72 08/30/17 00:26 97.0 F L 95 18 104/68 96 08/30/17 00:00 97.6 F 88 18 106/68 97 08/29/17 23:18 97.9 F 86 18 108/61 99 08/29/17 22:34 98.4 F 87 18 102/62 99 08/29/17 22:14 98.2 F 86 18 103/64 98 08/29/17 22:04 98.8 F 88 18 102/61 99 08/29/17 21:54 97.0 F L 86 18 104/62 98 08/29/17 21:00 97.0 F L 84 18 118/72 100 08/29/17 20:26 97.8 F 82 18 109/71 100 08/29/17 19:54 97.8 F 87 18 103/67 08/29/17 18:54 98.4 F 94 18 97/64 08/29/17 18:40 98.2 F 92 18 99/64 08/29/17 18:25 98.1 F 95 18 107/70 08/29/17 18:09 97.8 F 89 18 97/65 08/29/17 18:00 98 F 89 18 91/62 100 08/29/17 17:50 98.2 F 88 18 95/60 98 08/29/17 17:06 92 18 102/67 100 08/29/17 16:28 93 18 95/63 98 08/29/17 15:59 98.5 F 105 H 20 75/49 99 Intake and Output 08/29/17 08/30/17 08/30/17 22:59 06:59 14:59 Intake Total 310 880 Output Total 425 Balance 310 455 Intake: Intake, IV Titration 880 Amount Sodium Chloride 0.9% 1, 880 000 ml @ 110 mls/hr IV . Q9H6M [facility] Rx#:[id number] Blood Product 310 0 Rc As-1 Unit 0 0 [id number] As-1 Unit 310 [id number] Output: Urine 425 Other: Voiding Method Toilet Toilet Urinal Urinal Weight 58.967 kg 50.5 kg 54.8 kg - Constitutional General appearance: cooperative, no acute distress, thin - EENT Eyes: anicteric sclerae, EOMI ENT: normal oropharynx - Neck Neck: no lymphadenopathy - Respiratory Respiratory: bilateral: CTA - Cardiovascular Rhythm: regular Heart sounds: normal: S1, S2 leg Peripheral Edema: bilateral: None - Gastrointestinal General gastrointestinal: no absent bowel sounds, no decreased bowel sounds, no distended, no hepatomegaly, no hyperactive bowel sounds, normal bowel sounds, no organomegaly, no rigid, no scaphoid, soft, no splenomegaly, no tenderness, no umbilical hernia, no ventral hernia Localized gastrointestinal: tender: epigastric periumbilical - Integumentary Integumentary: pale - Neurologic Neurologic: CNII-XII intact - Musculoskeletal Musculoskeletal: generalized weakness, strength equal bilaterally - Psychiatric Psychiatric: A&O x's 3, appropriate affect, intact judgment & insight Results CBC & Chem 7: 08/30/17 18:09 08/29/17 16:27 Labs: Abnormal Lab Results - Last 24 Hours (Table) 08/29/17 08/29/17 08/29/17 Range/Units 16:08 16:27 16:27 WBC 14.6 H (3.8-10.6) k/uL RBC 2.34 L (4.30-5.90) m/uL Hgb 6.0 L* (13.0-17.5) gm/dL Hct 19.6 L* (39.0-53.0) % MCHC 30.4 L (31.0-37.0) g/dL RDW 16.6 H (11.5-15.5) % Neutrophils # 14.1 H (1.3-7.7) k/uL Lymphocytes # 0.3 L (1.0-4.8) k/uL Retic Count (0.5-2.0) % APTT (22.0-30.0) sec Carbon Dioxide (22-30) mmol/L BUN (9-20) mg/dL Glucose (74-99) mg/dL POC Glucose (mg/dL) 128 H (75-99) mg/dL Phosphorus (2.5-4.5) mg/dL Total Bilirubin (0.2-1.3) mg/dL ALT (21-72) U/L Total Creatine Kinase 47 L (55-170) U/L Total Protein (6.3-8.2) g/dL Urine Ketones (Negative) Crossmatch 08/29/17 08/29/17 08/29/17 Range/Units 16:27 16:27 16:27 WBC (3.8-10.6) k/uL RBC (4.30-5.90) m/uL Hgb (13.0-17.5) gm/dL Hct (39.0-53.0) % MCHC (31.0-37.0) g/dL RDW (11.5-15.5) % Neutrophils # (1.3-7.7) k/uL Lymphocytes # (1.0-4.8) k/uL Retic Count (0.5-2.0) % APTT 20.9 L (22.0-30.0) sec Carbon Dioxide 21 L (22-30) mmol/L BUN 24 H (9-20) mg/dL Glucose 120 H (74-99) mg/dL POC Glucose (mg/dL) (75-99) mg/dL Phosphorus 4.8 H (2.5-4.5) mg/dL Total Bilirubin <0.1 L (0.2-1.3) mg/dL ALT 18 L (21-72) U/L Total Creatine Kinase (55-170) U/L Total Protein 5.9 L (6.3-8.2) g/dL Urine Ketones (Negative) Crossmatch See Detail 08/30/17 08/30/17 08/30/17 Range/Units 00:37 06:35 11:21 WBC (3.8-10.6) k/uL RBC 3.00 L (4.30-5.90) m/uL Hgb 8.0 L D (13.0-17.5) gm/dL Hct 25.1 L (39.0-53.0) % MCHC (31.0-37.0) g/dL RDW 15.8 H (11.5-15.5) % Neutrophils # (1.3-7.7) k/uL Lymphocytes # 0.7 L (1.0-4.8) k/uL Retic Count 2.8 H (0.5-2.0) % APTT (22.0-30.0) sec Carbon Dioxide (22-30) mmol/L BUN (9-20) mg/dL Glucose (74-99) mg/dL POC Glucose (mg/dL) (75-99) mg/dL Phosphorus (2.5-4.5) mg/dL Total Bilirubin (0.2-1.3) mg/dL ALT (21-72) U/L Total Creatine Kinase (55-170) U/L Total Protein (6.3-8.2) g/dL Urine Ketones 1+ H (Negative) Crossmatch Chest x-ray: report reviewed Assessment and Plan (1) Acute blood loss anemia Narrative/Plan: Acute blood loss suspect due to esophageal mass hemorrhage. Patient has been transfused with 2 units PRBCs, appropriate increase in hemoglobin. CBC daily, transfuse as needed to keep hemoglobin greater than 7. Anemia workup has been ordered. Case discussed with Radiation Oncology. They will evaluate patient to see if further work up is warranted and if palliative radiation can help slow/stop the bleeding until chemotherapy can be started. Current Visit: Yes Status: Acute Priority: High Code(s): D62 - ACUTE POSTHEMORRHAGIC ANEMIA SNOMED Code(s): 581554991 (2) Esophageal cancer Narrative/Plan: Patient has only received palliative radiation to painful right hip metastasis. He states that his hip feels much better. Patient due to start chemotherapy next week. Have discussed the case with Radiation Oncologist. Will discuss case with Primary Oncologist. Bleeding will need to be controlled prior to starting therapy. Currently await Radiation Oncology recommendations. Will keep PEG placement on hold for now, may need to be considered though sooner then later. Current Visit: Yes Status: Acute Priority: High Code(s): C15.9 - MALIGNANT NEOPLASM OF ESOPHAGUS, UNSPECIFIED SNOMED Code(s): 655988035
--- NOTE | 2017-08-30 12:03 | P.CONS ---
History of Present Illness - Reason for Consult Consult date: 08/30/17 GI bleed coffee ground emesis anemia Requesting physician: Samantha Roque - History of Present Illness 62-year-old male recently diagnosed with metastatic esophageal carcinoma admitted with coffee-ground emesis. Received radiation to his hip yesterday. He felt weak lower blood pressures sent to the ER for evaluation. He has a history of daily alcohol beer intake. His last beer was a few days ago. He states he vomited Monday twice coffee- ground black in color. No history of peptic ulcer disease. Denies gross hematochezia or melena. Some mild midepigastric discomfort. Admission hemoglobin 6 he received 2 units of blood current hemoglobin is 8.2. BUN 24. Platelet 212. INR 0.9. Total bilirubin less than 0.1. AST 18. ALT 18. Alkaline phosphatase 40. No NSAIDs or aspirin. According to outside records he underwent EGD surveillance at [facility] 07/19/2017 with findings of extensive esophageal mass in the setting of Delgado's between 28-36 cm biopsies consistent with invasive adenocarcinoma. He recently had a Port-A-Cath placement on 08/24/2017. According to outside records patient is too weak to receive chemotherapy at this time. Chest radiation is planned for the near future. Presently he is appropriate with history taking however he does appear to struggle with collection of his thoughts little slow to respond. Review of Systems Constitutional: Denies fever, chills, sweats, weight gain, or loss. HEENT: Negative for migraines, blurred vision or loss, earaches, drainage, tinnitus, oral mucosal lesions, dysphagia, or odynophagia. Cardiac: Negative for chest pain, arrhythmias, or palpitation. Respiratory: History of asthma. COPD. Negative for shortness of breath, hemoptysis, cough, or sputum production. Gastrointestinal: See HPI for pertinent findings. Genitourinary: Negative for hematuria, urgency, frequency, polyuria, dysuria, or penile discharge. Musculoskeletal: Negative for muscle aches, swelling, arthritis, and arthralgias. Neurologic: Negative for stroke or TIA. Endocrine: Negative for thyroid problems. Skin: Negative for rash or itching. Psychiatric: History of anxiety and depression Past Medical History Past Medical History: Asthma, Cancer, COPD, GERD/Reflux, Skin Disorder Additional Past Medical History / Comment(s): , past hx. collapsed lung 5 yrs, generalized rash on trunk ago, dx with esophageal CA with mets to bone right hip about 3 weeks ago, recieving radiation last tx 08/29/17 History of Any Multi-Drug Resistant Organisms: None Reported Past Surgical History: Hernia Repair Additional Past Surgical History / Comment(s): colonoscopy, EGD Past Anesthesia/Blood Transfusion Reactions: No Reported Reaction Past Psychological History: Anxiety, Depression Smoking Status: Former smoker Past Alcohol Use History: None Reported Additional Past Alcohol Use History / Comment(s): quit smoking 1 month ago, smoked for 25 yrs.-still an occasional cigarette sometimes up to 1/2 pack a day Past Drug Use History: None Reported Additional Drug Use History / Comment(s): occasional drinking. patient states sometimes 2-3 beers a night, sometimes more and sometimes less - Past Family History Mother Family Medical History: Cancer, CVA/TIA Medications and Allergies Home Medications Medication Instructions Recorded Confirmed Type Albuterol Inhaler [Ventolin Hfa 1 - 2 puff INHALATION Q6HR PRN 05/18/16 History Inhaler] ALPRAZolam [Xanax] 0.25 mg PO BID PRN 08/22/17 08/29/17 History Dexamethasone See Taper PO DIRECTED 08/29/17 08/29/17 History Diazepam [Valium] 10 mg PO Q8H PRN 08/29/17 08/29/17 History Mirtazapine [Remeron] 45 mg PO HS 08/29/17 08/29/17 History Omeprazole [PriLOSEC] 40 mg PO DAILY 08/29/17 08/29/17 History oxyCODONE-APAP 10-325MG [Percocet 1 tab PO Q6HR PRN 08/29/17 08/29/17 History 10-325 mg] Prochlorperazine [Compazine] 10 mg PO Q6H PRN #50 tab 08/30/17 Rx Allergies Allergy/AdvReac Type Severity Reaction Status Date / Time No Known Allergies Allergy Verified 08/29/17 16:46 Physical Exam Vitals: Vital Signs Temp Pulse Pulse Resp BP BP Pulse Ox 08/30/17 04:00 98.0 F 84 18 96/72 08/30/17 00:26 97.0 F L 95 18 104/68 96 08/30/17 00:00 97.6 F 88 18 106/68 97 08/29/17 23:18 97.9 F 86 18 108/61 99 08/29/17 22:34 98.4 F 87 18 102/62 99 08/29/17 22:14 98.2 F 86 18 103/64 98 08/29/17 22:04 98.8 F 88 18 102/61 99 08/29/17 21:54 97.0 F L 86 18 104/62 98 08/29/17 21:00 97.0 F L 84 18 118/72 100 08/29/17 20:26 97.8 F 82 18 109/71 100 08/29/17 19:54 97.8 F 87 18 103/67 08/29/17 18:54 98.4 F 94 18 97/64 08/29/17 18:40 98.2 F 92 18 99/64 08/29/17 18:25 98.1 F 95 18 107/70 08/29/17 18:09 97.8 F 89 18 97/65 08/29/17 18:00 98 F 89 18 91/62 100 08/29/17 17:50 98.2 F 88 18 95/60 98 08/29/17 17:06 92 18 102/67 100 08/29/17 16:28 93 18 95/63 98 08/29/17 15:59 98.5 F 105 H 20 75/49 99 Intake and Output 08/29/17 08/30/17 08/30/17 22:59 06:59 14:59 Intake Total 310 880 Output Total 425 Balance 310 455 Intake: Intake, IV Titration 880 Amount Sodium Chloride 0.9% 1, 880 000 ml @ 110 mls/hr IV . Q9H6M [facility] Rx#:[id number] Blood Product 310 0 Rc As-1 Unit 0 0 [id number] Rc As-1 Unit 310 [id number] Output: Urine 425 Other: Voiding Method Toilet Toilet Urinal Urinal Weight 58.967 kg 50.5 kg 54.8 kg General appearance: The patient is alert, oriented, in no acute distress. HET: Head is normocephalic and atraumatic. Pupils are equal and reactive. Oropharynx is clear without lesions. Neck: Supple without lymphadenopathy. Trachea midline. Heart: S1 S2. Regular rate and rhythm. Chest port without erythema or drainage. Lungs: No crackles or wheezes are heard. Abdomen: Soft, nontender, nondistended with bowel sounds. No peritoneal signs. No palpable organomegaly or masses. Extremities: Normal skin color and turgor. No cyanosis, rash, ulceration, clubbing, or edema. Radial and pedal pulses are 2/4 bilaterally. Neurological: No focal deficits. Strength and sensation are grossly intact. Results CBC & Chem 7: 08/31/17 06:16 08/29/17 16:27 Labs: Abnormal Lab Results - Last 24 Hours (Table) 08/29/17 08/29/17 08/29/17 Range/Units 16:08 16: 16: WBC 14.6 H (3.8-10.6) k/uL RBC 2.34 L (4.30-5.90) m/uL Hgb 6.0 L* (13.0-17.5) gm/dL Hct 19.6 L* (39.0-53.0) % MCHC 30.4 L (31.0-37.0) g/dL RDW 16.6 H (11.5-15.5) % Neutrophils # 14.1 H (1.3-7.7) k/uL Lymphocytes # 0.3 L (1.0-4.8) k/uL APTT (22.0-30.0) sec Carbon Dioxide (22-30) mmol/L BUN (9-20) mg/dL Glucose (74-99) mg/dL POC Glucose (mg/dL) 128 H (75-99) mg/dL Phosphorus (2.5-4.5) mg/dL Total Bilirubin (0.2-1.3) mg/dL ALT (21-72) U/L Total Creatine Kinase 47 L (55-170) U/L Total Protein (6.3-8.2) g/dL Urine Ketones (Negative) Crossmatch 08/29/17 08/29/17 08/29/17 Range/Units 16:27 16: 16:27 WBC (3.8-10.6) k/uL RBC (4.30-5.90) m/uL Hgb (13.0-17.5) gm/dL Hct (39.0-53.0) % MCHC (31.0-37.0) g/dL RDW (11.5-15.5) % Neutrophils # (1.3-7.7) k/uL Lymphocytes # (1.0-4.8) k/uL APTT 20.9 L (22.0-30.0) sec Carbon Dioxide 21 L (22-30) mmol/L BUN 24 H (9-20) mg/dL Glucose 120 H (74-99) mg/dL POC Glucose (mg/dL) (75-99) mg/dL Phosphorus 4.8 H (2.5-4.5) mg/dL Total Bilirubin <0.1 L (0.2-1.3) mg/dL ALT 18 L (21-72) U/L Total Creatine Kinase (55-170) U/L Total Protein 5.9 L (6.3-8.2) g/dL Urine Ketones (Negative) Crossmatch See Detail 08/30/17 08/30/17 Range/Units 00:37 06:35 WBC (3.8-10.6) k/uL RBC 3.00 L (4.30-5.90) m/uL Hgb 8.0 L D (13.0-17.5) gm/dL Hct 25.1 L (39.0-53.0) % MCHC (31.0-37.0) g/dL RDW 15.8 H (11.5-15.5) % Neutrophils # (1.3-7.7) k/uL Lymphocytes # 0.7 L (1.0-4.8) k/uL APTT (22.0-30.0) sec Carbon Dioxide (22-30) mmol/L BUN (9-20) mg/dL Glucose (74-99) mg/dL POC Glucose (mg/dL) (75-99) mg/dL Phosphorus (2.5-4.5) mg/dL Total Bilirubin (0.2-1.3) mg/dL ALT (21-72) U/L Total Creatine Kinase (55-170) U/L Total Protein (6.3-8.2) g/dL Urine Ketones 1+ H (Negative) Crossmatch Assessment and Plan (1) Upper GI hemorrhage Narrative/Plan: Coffee-ground emesis most likely from esophageal cancer recently diagnosed July 2017 with metastatic disease status post Port-A-Cath to ill to receive chemo at this time plans for palliative chest radiation in the near future. Current Visit: Yes Status: Acute Code(s): K92.2 - GASTROINTESTINAL HEMORRHAGE, UNSPECIFIED SNOMED Code(s): 45378496 (2) Esophageal cancer Current Visit: Yes Status: Acute Priority: High Code(s): C15.9 - MALIGNANT NEOPLASM OF ESOPHAGUS, UNSPECIFIED SNOMED Code(s): 392054318 (3) Acute blood loss anemia Current Visit: Yes Status: Acute Priority: High Code(s): D62 - ACUTE POSTHEMORRHAGIC ANEMIA SNOMED Code(s): 685291909 (4) Metastatic cancer Current Visit: Yes Status: Acute Code(s): C79.9 - SECONDARY MALIGNANT NEOPLASM OF UNSPECIFIED SITE SNOMED Code(s): 504502173 (5) ETOH abuse Current Visit: Yes Status: Acute Code(s): F10.10 - ALCOHOL ABUSE, UNCOMPLICATED SNOMED Code(s): 14409962 Plan: 1. Clear liquids and advance as tolerated. Check ammonia level. CBC every 6 hours. Protonix 40 mg IV twice daily. We'll discuss with oncology re- surveillance EGD, at this time we'll continue to observe. Oncology consultation appreciated. Alcohol abstinence strongly advised. Thank you for this kind referral and the opportunity to participate in the care of your patient. This consultation was discussed with Dr. George. The impression and plan of care have been directed as dictated.
[2017-08-30] MEDS: MORPHINE SULFATE ER 15 MG TABLET PO SCH ×2 (15:39→20:27)
[2017-08-30 17:06] LABS: Iron Saturation 3.86 (15.00-50.00)
[2017-08-30] MEDS: DIAZEPAM 5 MG TAB PO PRN (18:20)
[2017-08-30 18:29] LABS: Anisocytosis Slight; Basophils % (A) 0 %; Eosinophils # (A) 0.1 k/uL (0-0.7); Eosinophils % (A) 2 %; HGB 8.1 gm/dL (13.0-17.5); Hypochromasia Moderate; Lymphocytes # (A) 1.1 k/uL (1.0-4.8); Lymphocytes % (A) 16 %; MCH 26.1 pg (25.0-35.0); MCHC 31.1 g/dL (31.0-37.0); MCV 84.1 fL (80.0-100.0); Mean Platelet Volume 8.9; Monocytes # (A) 0.3 k/uL (0-1.0); Monocytes % (A) 5 %; Neutrophils % (A) 76 %; Platelet Count 256 k/uL (150-450); Poikilocytosis Slight; RBC 3.09 m/uL (4.30-5.90); RDW 16.3 % (11.5-15.5); WBC 6.6 k/uL (3.8-10.6)
[2017-08-30] MEDS: MIRTAZAPINE 45 MG TABLET PO SCH (20:19)
[2017-08-31 00:20] LABS: Anisocytosis Slight; Basophils % (A) 0 %; Eosinophils # (A) 0.1 k/uL (0-0.7); Eosinophils % (A) 2 %; HCT 25.8 % (39.0-53.0); HGB 8.3 gm/dL (13.0-17.5); Hypochromasia Moderate; Lymphocytes # (A) 1.1 k/uL (1.0-4.8); Lymphocytes % (A) 16 %; MCH 27.2 pg (25.0-35.0); MCHC 32.1 g/dL (31.0-37.0); MCV 84.6 fL (80.0-100.0); Mean Platelet Volume 7.3; Monocytes # (A) 0.5 k/uL (0-1.0); Monocytes % (A) 6 %; Neutrophils # (A) 5.1 k/uL (1.3-7.7); Neutrophils % (A) 73 %; Platelet Count 268 k/uL (150-450); Poikilocytosis Moderate; RBC 3.05 m/uL (4.30-5.90)
[2017-08-31 06:46] LABS: Basophils % (A) 0 %; Eosinophils # (A) 0.1 k/uL (0-0.7); Eosinophils % (A) 2 %; HCT 23.8 % (39.0-53.0); HGB 7.5 gm/dL (13.0-17.5); Hypochromasia Moderate; Lymphocytes # (A) 1.1 k/uL (1.0-4.8); Lymphocytes % (A) 17 %; MCH 26.4 pg (25.0-35.0); MCHC 31.4 g/dL (31.0-37.0); MCV 84.1 fL (80.0-100.0); Mean Platelet Volume 7.2; Monocytes # (A) 0.4 k/uL (0-1.0); Monocytes % (A) 7 %; Neutrophils # (A) 4.5 k/uL (1.3-7.7); Neutrophils % (A) 72 %; Platelet Count 249 k/uL (150-450); Poikilocytosis Moderate; RBC 2.83 m/uL (4.30-5.90); RDW 15.9 % (11.5-15.5); WBC 6.2 k/uL (3.8-10.6)
[2017-08-31] MEDS: MORPHINE SULFATE ER 15 MG TABLET PO SCH ×2 (08:12→20:57)
[2017-08-31] MEDS: SODIUM CHLORIDE 0.9% 1,000 ML IV SCH ×2 (08:14→11:29)
--- NOTE | 2017-08-31 08:33 | CONS ---
CONSULTATION REASON FOR CONSULTATION: Carcinoma originating from the gastroesophageal junction with associated bleeding. 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 The patient's staging workup confirmed the mass. The malignant mass at the gastroesophageal junction had spread to the lymph nodes of the thorax as well as spread to the right pelvic bone consistent with metastasis. The plan of action at that time was to start palliative radiation therapy to the right hip and femur metastatic lesion followed by systemic chemotherapy. The patient started palliative radiation therapy to the right hip on 08/14/2017 and has received 8 out of 10 treatments. The last radiation treatment was delivered on 08/29/2017. Over the past 24 hours, the patient reported coffee-grounds emesis with associated lowering of his blood pressure. The concern was for bleeding from the gastroesophageal mass and the patient was subsequently admitted to [facility] for further management and evaluation. During the inpatient visit, a chest x-ray from 08/29/2017 showed no active cardiopulmonary disease or change when compared to prior imaging from 2017. Due to the patient's presentation and history of bleeding, gastroenterology service was contacted and the patient has been scheduled for an EGD with probable biopsy scheduled for today, 08/30/2017. The patient has also been seen by Catrachita Valle, Nurse practitioner regarding his presentation and Radiation Oncology was consulted regarding hematemesis most likely from his gastroesophageal carcinoma. The patient's overall performance status is poor and at the present time he is not an optimal candidate for systemic chemotherapy. Therefore palliative radiation therapy was recommended regarding the bleeding gastroesophageal mass after the EGD has been performed and the patient has been hemodynamically stable. On today's visit the patient reports interval improvement of coffee-grounds emesis. PAST MEDICAL HISTORY: As per HPI, asthma, COPD, gastroesophageal reflux disease. PAST SURGICAL HISTORY: Lung collapse with management as per [facility] with biopsy of esophageal cancer diagnosis and hernia repair. Other past medical history we should put depression. SOCIAL HISTORY: Positive for tobacco 25 years. Active smoker, half a pack a day. No history of alcohol intake. MEDICATIONS: Albuterol, alprazolam, dexamethasone, diazepam, mirtazapine, Prilosec, oxycodone , Compazine. ALLERGIES: No known drug allergies. PERTINENT LABORATORY DATA: 08/29/2017, CBC, WBC 14.6, hemoglobin 6.0, hematocrit 19.6, platelet count 306, 000. Comprehensive metabolic profile, sodium 139, potassium 4.7, and BUN 24, creatinine 0.8, glucose 120, calcium 9.2, AST 18, ALT 18, alkaline phosphatase 40. Urinalysis negative for bacteria, blood, nitrates, bilirubin, and leukocyte esterase. REVIEW OF SYSTEMS: Constitutional: Positive for fatigue and weight loss. Negative for fevers, chills. HEENT negative for odynophagia. Positive for dysphagia and nausea. Negative for incontinence and positive for coffee ground emesis. Respiratory: Positive dyspnea on exertion. Negative for chest pain, productive cough, hemoptysis. Genitourinary : Negative for incontinence, hematuria, obstructive uropathy, renal stone disease. Neurologic negative for seizure activity, severe headaches, severe extremity weakness. PHYSICAL EXAM: Well-developed, well-nourished, thin, elderly appearing gentleman no acute distress. Performance status is fair. ECOG score is 3-4. Vital signs: Pulse 84, respiration 18. Temperature 96.9, blood pressure 141/79, and O2 saturation is 98% on room air. HEENT: Shows no mucosal lesions in the oral cavity. There is no scleral icterus. The neck is without palpable lymphadenopathy. CHEST: Clear to auscultation. No audible wheezes. HEART: Regular rate and rhythm. Abdomen is round, soft, nontender. There is no organomegaly or masses. Extremities shows no edema, tenderness, cyanosis. Neurologic: He is alert and oriented times three. Speech is fluent. Gait is slow and steady. There are no sensory deficits. Strength is within normal limits. 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 Patient has started palliative radiation therapy to the right hip and femur on 08/14/2017 and has received 8/ treatments. The patient now has new symptoms of coffee-grounds emesis with compromise in his hemodynamic status, most likely consistent with a bleeding tumor from the esophageal junction which is no malignant lesion. The patient is scheduled for the EGD and probable biopsy this afternoon. His overall performance status is fair. ECOG score 3-4. Radiation Oncology is recommended regarding palliative radiation therapy to the gastroesophageal junction at this time since patient is not an optimal candidate for systemic chemotherapy. RECOMMENDATION: Discussed with the patient regarding his past medical history and current medical problems including this admission. I agree with EGD and biopsy this afternoon followed by palliative radiation therapy to the gastroesophageal junction mass. I will use the information from the EGD to guide management for palliative radiation therapy which we will start as an inpatient scheduled for 08/31/2017. The patient is not an optimal candidate for systemic chemotherapy. However, continue to follow with Medical Oncology in the interim as well. If the patient will receive radiation therapy, the plan of action is to deliver palliative dose of 3750 cGy delivered in 15 fractions using 250 cGy per fraction via 10 MV photons. The patient will have simulation scheduled for 08/31/2017, and she will be started as an inpatient and will continue as an outpatient as well. MMJOHN / BIRGITN: [id number] / MTDD
--- NOTE | 2017-08-31 11:01 | P.PN ---
Subjective Progress Note Date: 08/31/17 Principal diagnosis: Upper GI bleed esophageal cancer 63-year-old gentleman recently diagnosed with metastatic esophageal cancer admitted with coffee-ground emesis. No recurrent coffee-ground emesis, hematemesis, hematochezia, or melena. Presently feels well but reporting discomfort was swallowing some mild mid chest discomfort. Full liquid diet with protein shake supplementation ordered. Denies abdominal pain. Afebrile. Hemoglobin 7.5. Tentative plans for palliative radiation possibly today. Objective - Vital Signs Vital signs: Vital Signs Temp 97.6 F 08/31/17 07:50 Pulse 80 08/31/17 08:00 Resp 16 08/31/17 08:00 BP 120/74 08/31/17 07:50 Pulse Ox 100 08/31/17 07:50 Intake & Output 08/30/17 08/31/17 08/31/17 18:59 06:59 18:59 Intake Total 1600 50 Balance 1600 50 Weight 50.5 kg 54 kg 54 kg Intake: Intake, IV Titration 1600 Amount Sodium Chloride 0.9% 1, 1600 000 ml @ 110 mls/hr IV . Q9H6M [facility] Rx#:[id number] Oral 50 Other: Voiding Method Toilet Toilet Toilet Urinal Urinal Urinal # Voids 0 4 1 # Bowel Movements 0 0 - Exam General appearance: The patient is alert, oriented, in no acute distress. HET: Head is normocephalic and atraumatic. Pupils are equal and reactive. Oropharynx is clear without lesions. Neck: Supple without lymphadenopathy. Trachea midline. Heart: S1 S2. Regular rate and rhythm. Lungs: No crackles or wheezes are heard. Abdomen: Soft, nontender, nondistended with bowel sounds. No peritoneal signs. No palpable organomegaly or masses. Extremities: Normal skin color and turgor. No cyanosis, rash, ulceration, clubbing, or edema. Radial and pedal pulses are 2/4 bilaterally. Neurological: No focal deficits. Strength and sensation are grossly intact. - Labs CBC & Chem 7: 08/31/17 06:16 08/29/17 16:27 Labs: Abnormal Lab Results - Last 24 Hours (Table) 08/30/17 08/30/17 08/30/17 Range/Units 11:21 11:21 11:21 RBC (4.30-5.90) m/uL Hgb (13.0-17.5) gm/dL Hct (39.0-53.0) % RDW (11.5-15.5) % Retic Count 2.8 H (0.5-2.0) % Iron 13 L (65-175) ug/dL Iron Saturation 3.86 L (15.00-50.00) Ferritin 5.6 L (22.0-322.0) ng/mL RBC Folate 1,182 H (280 - 791) ng/mL 08/30/17 08/31/17 08/31/17 Range/Units 18:09 00:05 06:16 RBC 3.09 L 3.05 L 2.83 L (4.30-5.90) m/uL Hgb 8.1 L 8.3 L 7.5 L (13.0-17.5) gm/dL Hct 26.0 L 25.8 L 23.8 L (39.0-53.0) % RDW 16.3 H 16.0 H 15.9 H (11.5-15.5) % Retic Count (0.5-2.0) % Iron (65-175) ug/dL Iron Saturation (15.00-50.00) Ferritin (22.0-322.0) ng/mL RBC Folate (280 - 791) ng/mL Assessment and Plan (1) Upper GI hemorrhage Narrative/Plan: Coffee-ground emesis most likely from esophageal cancer recently diagnosed July 2017 with metastatic disease status post Port-A-Cath to ill to receive chemo at this time plans for palliative chest radiation in the near future. Current Visit: Yes Status: Acute Code(s): K92.2 - GASTROINTESTINAL HEMORRHAGE, UNSPECIFIED SNOMED Code(s): 08401793 (2) Esophageal cancer Current Visit: Yes Status: Acute Priority: High Code(s): C15.9 - MALIGNANT NEOPLASM OF ESOPHAGUS, UNSPECIFIED SNOMED Code(s): 191778579 (3) Acute blood loss anemia Current Visit: Yes Status: Acute Priority: High Code(s): D62 - ACUTE POSTHEMORRHAGIC ANEMIA SNOMED Code(s): 118031290 (4) Metastatic cancer Current Visit: Yes Status: Acute Code(s): C79.9 - SECONDARY MALIGNANT NEOPLASM OF UNSPECIFIED SITE SNOMED Code(s): 362439103 (5) ETOH abuse Current Visit: Yes Status: Acute Code(s): F10.10 - ALCOHOL ABUSE, UNCOMPLICATED SNOMED Code(s): 98528120 Plan: 1. Case discussed with oncology no plans for EGD at this time. Possible palliative radiation today. Continue with CBC monitoring. Protonix 40 mg IV twice daily. Discharge per medicine/oncology. Full liquid diet/protein shake supplementation. Dietary consultation. Assessment and plan a care discussed with Dr. George
[2017-08-31] MEDS: SODIUM FERRIC GLUCONAT-SUCROSE 125 MG in SODIUM CHLORIDE 0.9% 100 ML IVPB SCH (11:28)
[2017-08-31] MEDS: PANTOPRAZOLE 40 MG/10 ML VIAL IVP SCH ×2 (11:29→20:57)
--- NOTE | 2017-08-31 12:05 | P.PN ---
Subjective Progress Note Date: 08/31/17 Alton Martinez is a 62-year-old male presenting to [facility] emergency department for generalized weakness. Patient felt lightheaded. 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 Patient is currently undergoing radiation treatment to the right hip. Patient started having some bloody vomiting 2 days ago, he was evaluated in the emergency room hemoglobin was down to 62 units of red blood cells transfusion were ordered and patient was admitted to telemetry floor gastroenterology consultation was requested. Also oncology consultation was requested for follow -up. 08/31/2017 patient has had no further hematemesis. Did receive 2 units of blood. Hemoglobin is down at 7.5. Iron studies are low with a total iron of 13. Patient is scheduled for radiation treatment to the esophagus this afternoon. He did receive radiation to his hip yesterday. Patient was started on morphine for pain control as of yesterday. Still complaining of pain especially with swallowing. GI service has advance diet to a full liquid diet Objective - Vital Signs Vital signs: Vital Signs Temp 97.6 F 08/31/17 07:50 Pulse 80 08/31/17 08:00 Resp 16 08/31/17 08:00 BP 120/74 08/31/17 07:50 Pulse Ox 100 08/31/17 07:50 Intake & Output 08/30/17 08/31/17 08/31/17 18:59 06:59 18:59 Intake Total 1600 50 Balance 1600 50 Weight 50.5 kg 54 kg 54 kg Intake: Intake, IV Titration 1600 Amount Sodium Chloride 0.9% 1, 1600 000 ml @ 110 mls/hr IV . Q9H6M [facility] Rx#:[id number] Oral 50 Other: Voiding Method Toilet Toilet Toilet Urinal Urinal Urinal # Voids 0 4 1 # Bowel Movements 0 0 - Exam Head normocephalic Neck supple Lungs clear to auscultation bilaterally no wheezing or crackles Heart regular rate and rhythm S1-S2, no rub or gallop Abdomen is soft nontender nondistended positive bowel sounds no hepatosplenomegaly Extremities no edema Neuro alert and orientated to 3 - Labs CBC & Chem 7: 08/31/17 06:16 08/29/17 16:27 Labs: Abnormal Lab Results - Last 24 Hours (Table) 08/30/17 08/30/17 08/30/17 Range/Units 11:21 11:21 18:09 RBC 3.09 L (4.30-5.90) m/uL Hgb 8.1 L (13.0-17.5) gm/dL Hct 26.0 L (39.0-53.0) % RDW 16.3 H (11.5-15.5) % Iron 13 L (65-175) ug/dL Iron Saturation 3.86 L (15.00-50.00) Ferritin 5.6 L (22.0-322.0) ng/mL RBC Folate 1,182 H (280 - 791) ng/mL 08/31/17 08/31/17 Range/Units 00:05 06:16 RBC 3.05 L 2.83 L (4.30-5.90) m/uL Hgb 8.3 L 7.5 L (13.0-17.5) gm/dL Hct 25.8 L 23.8 L (39.0-53.0) % RDW 16.0 H 15.9 H (11.5-15.5) % Iron (65-175) ug/dL Iron Saturation (15.00-50.00) Ferritin (22.0-322.0) ng/mL RBC Folate (280 - 791) ng/mL Assessment and Plan Assessment: 1. Acute upper GI bleed with acute blood loss anemia likely secondary to esophageal cancer which was recently diagnosed in July 2017 with metastatic disease to the hip. Patient is currently undergoing palliative chest radiation for the esophagus cancer. He received 2 units of blood yesterday. Hemoglobin is at 7.5. Repeat CBC in a.m. No need for EGD per GI and oncology 2. Esophageal cancer with metastatic disease to the hip. Patient has been undergoing radiation treatments to his right hip 3. Recent placement of a right subclavian port, patient has not started chemotherapy yet due to him being to ill 4. History of depression and generalized anxiety disorder I performed an examination of the patient and discussed their management with the physician Sifter Operator. I have reviewed the Physician Sifter Operator's notes and agree with the documented findings and plan of care
[2017-08-31] MEDS: DIAZEPAM 5 MG TAB PO PRN (15:38)
--- NOTE | 2017-08-31 16:48 | P.PN ---
Subjective Progress Note Date: 08/31/17 Principal diagnosis: Upper GI bleed associated with metastatic esophageal cancer Alton Martinez is a 62-year-old male presenting to [facility] emergency department for generalized weakness. Patient has a known history of metastatic esophageal cancer and is currently undergoing palliative right hip radiation therapy Alton started having some bloody vomiting 2 days ago, he was evaluated in the emergency room and found to have a hb of 6.2. On todays evaluation Arnold has had no further hematemesis. He did receive 2 units of blood and hemboglobin is stable. He presents to the department of radiation oncology today for initiation of palliative RT to his bleeding esophageal mass Objective - Vital Signs Vital signs: Vital Signs Temp 97.6 F 08/31/17 15:40 Pulse 80 08/31/17 15:40 Resp 16 08/31/17 15:40 BP 110/71 08/31/17 15:40 Pulse Ox 100 08/31/17 15:40 Intake & Output 08/30/17 08/31/17 08/31/17 18:59 06:59 18:59 Intake Total 1600 150 Output Total 300 Balance 1600 -150 Weight 50.5 kg 54 kg 54 kg Intake: Intake, IV Titration 1600 Amount Sodium Chloride 0.9% 1, 1600 000 ml @ 110 mls/hr IV . Q9H6M [facility] Rx#:[id number] Oral 150 Output: Urine 300 Other: Voiding Method Toilet Toilet Toilet Urinal Urinal Urinal # Voids 0 4 1 # Bowel Movements 0 0 - Constitutional General appearance: Present: thin - EENT ENT: Present: other, pharyngeal erythema - Neck Neck: Present: normal ROM - Respiratory Respiratory: bilateral: wheezing - Cardiovascular Rhythm: regular - Gastrointestinal General gastrointestinal: Present: normal bowel sounds - Labs CBC & Chem 7: 08/31/17 06:16 08/29/17 16:27 Labs: Abnormal Lab Results - Last 24 Hours (Table) 08/30/17 08/30/17 08/30/17 Range/Units 11:21 11:21 18:09 RBC 3.09 L (4.30-5.90) m/uL Hgb 8.1 L (13.0-17.5) gm/dL Hct 26.0 L (39.0-53.0) % RDW 16.3 H (11.5-15.5) % Iron 13 L (65-175) ug/dL Iron Saturation 3.86 L (15.00-50.00) Ferritin 5.6 L (22.0-322.0) ng/mL RBC Folate 1,182 H (280 - 791) ng/mL 08/31/17 08/31/17 Range/Units 00:05 06:16 RBC 3.05 L 2.83 L (4.30-5.90) m/uL Hgb 8.3 L 7.5 L (13.0-17.5) gm/dL Hct 25.8 L 23.8 L (39.0-53.0) % RDW 16.0 H 15.9 H (11.5-15.5) % Iron (65-175) ug/dL Iron Saturation (15.00-50.00) Ferritin (22.0-322.0) ng/mL RBC Folate (280 - 791) ng/mL Assessment and Plan Assessment: 62 year old male with a diagnosis of metastatic esophageal cancer and recent hematemesis. Patients hemoglobin is currently stable with no active tarry stools , hemoptysis, or hematemesis. Plan: We will have Alton undergo CT simulation this morning with plans to initiate radiotherapy to his bleeding esophageal mass later today.
--- NOTE | 2017-08-31 17:32 | P.PN ---
Subjective Progress Note Date: 08/31/17 Principal diagnosis: coffee ground emesis, metastatic esophageal adenocarcinoma Pt seen in follow up, he has started to eat liquids/soft foods. He is denying any vomiting, no bleeding, pain is not controlled very well. His brother is at bedside with numerous questions about plan of care Objective - Vital Signs Vital signs: Vital Signs Temp 97.6 F 08/31/17 15:40 Pulse 80 08/31/17 16:00 Resp 16 08/31/17 16:00 BP 110/71 08/31/17 15:40 Pulse Ox 100 08/31/17 15:40 Intake & Output 08/30/17 08/31/17 08/31/17 18:59 06:59 18:59 Intake Total 1600 1043 Output Total 300 Balance 1600 743 Weight 50.5 kg 54 kg 54 kg Intake: Intake, IV Titration 1600 Amount Sodium Chloride 0.9% 1, 1600 000 ml @ 110 mls/hr IV . Q9H6M [facility] Rx#:[id number] Oral 1043 Output: Urine 300 Other: Voiding Method Toilet Toilet Toilet Urinal Urinal Urinal # Voids 0 4 1 # Bowel Movements 0 0 - Constitutional General appearance: Present: cooperative, no acute distress, thin - EENT Eyes: Present: anicteric sclerae - Respiratory Respiratory: bilateral: CTA - Cardiovascular Heart sounds: normal: S1, S2 - Gastrointestinal General gastrointestinal: Present: normal bowel sounds, soft. Absent: absent bowel sounds, decreased bowel sounds, distended, hepatomegaly, hyperactive bowel sounds, organomegaly, rigid, scaphoid, splenomegaly, tenderness, umbilical hernia, ventral hernia - Integumentary Integumentary: Present: pale - Neurologic Neurologic: Present: CNII-XII intact - Musculoskeletal Musculoskeletal: Present: generalized weakness, strength equal bilaterally - Psychiatric Psychiatric: Present: A&O x's 3, appropriate affect, intact judgment & insight - Labs CBC & Chem 7: 08/31/17 06:16 08/29/17 16:27 Labs: Abnormal Lab Results - Last 24 Hours (Table) 08/30/17 08/30/17 08/30/17 Range/Units 11:21 11:21 18:09 RBC 3.09 L (4.30-5.90) m/uL Hgb 8.1 L (13.0-17.5) gm/dL Hct 26.0 L (39.0-53.0) % RDW 16.3 H (11.5-15.5) % Iron 13 L (65-175) ug/dL Iron Saturation 3.86 L (15.00-50.00) Ferritin 5.6 L (22.0-322.0) ng/mL RBC Folate 1,182 H (280 - 791) ng/mL 08/31/17 08/31/17 Range/Units 00:05 06:16 RBC 3.05 L 2.83 L (4.30-5.90) m/uL Hgb 8.3 L 7.5 L (13.0-17.5) gm/dL Hct 25.8 L 23.8 L (39.0-53.0) % RDW 16.0 H 15.9 H (11.5-15.5) % Iron (65-175) ug/dL Iron Saturation (15.00-50.00) Ferritin (22.0-322.0) ng/mL RBC Folate (280 - 791) ng/mL Assessment and Plan (1) Acute blood loss anemia Narrative/Plan: Acute blood loss suspect due to esophageal mass hemorrhage. Hgb stable. CBC daily. Rad/Onc plan for palliative radiation to control bleeding Current Visit: Yes Status: Acute Priority: High Code(s): D62 - ACUTE POSTHEMORRHAGIC ANEMIA SNOMED Code(s): 003463716 (2) Esophageal cancer Narrative/Plan: Cont palliative radiation to painful right hip metastasis and now to esophagus, under the care and direction of Radiation Oncology Will keep PEG placement on hold for now, pt and brother do understand that it may need to be considered. Plan for chemo after radiation Current Visit: Yes Status: Acute Priority: High Code(s): C15.9 - MALIGNANT NEOPLASM OF ESOPHAGUS, UNSPECIFIED SNOMED Code(s): 935232995 (3) Iron deficiency anemia Narrative/Plan: Due to acute/chronic loss from malignancy. Parenteral iron ordered Current Visit: Yes Status: Acute Priority: High Code(s): D50.9 - IRON DEFICIENCY ANEMIA, UNSPECIFIED SNOMED Code(s): 78950091
[2017-08-31] MEDS: MIRTAZAPINE 45 MG TABLET PO SCH (20:57)
[2017-08-31] MEDS ORDERED: MORPHINE SULFATE 4 MG/0.8 ML SYRINGE (INJ) IVP PRN (21:23)
[2017-09-01] MEDS: SODIUM CHLORIDE 0.9% 1,000 ML IV SCH ×3 (05:51→21:21)
[2017-09-01 07:01] LABS: ALT 20 U/L (21-72); AST 13 U/L (17-59); Albumin 2.4 g/dL (3.5-5.0); Alkaline Phosphatase 29 U/L (38-126); Anion Gap 8 mmol/L; Blood Urea Nitrogen 7 mg/dL (9-20); Carbon Dioxide 23 mmol/L (22-30); Chloride 110 mmol/L (98-107); Glucose 84 mg/dL (74-99); Potassium 3.9 mmol/L (3.5-5.1); Sodium 141 mmol/L (137-145); Total Bilirubin 0.1 mg/dL (0.2-1.3); Total Protein 4.2 g/dL (6.3-8.2)
[2017-09-01 07:09] LABS: Anisocytosis Slight; Basophils % (A) 0 %; Eosinophils # (A) 0.3 k/uL (0-0.7); Eosinophils % (A) 4 %; HCT 25.3 % (39.0-53.0); HGB 7.8 gm/dL (13.0-17.5); Hypochromasia Marked; Lymphocytes # (A) 0.8 k/uL (1.0-4.8); Lymphocytes % (A) 11 %; MCH 26.8 pg (25.0-35.0); MCV 86.5 fL (80.0-100.0); Mean Platelet Volume 8.5; Monocytes # (A) 0.4 k/uL (0-1.0); Monocytes % (A) 6 %; Neutrophils # (A) 5.7 k/uL (1.3-7.7); Neutrophils % (A) 78 %; Platelet Count 268 k/uL (150-450); Poikilocytosis Slight; RBC 2.92 m/uL (4.30-5.90); RDW 16.1 % (11.5-15.5); WBC 7.3 k/uL (3.8-10.6)
[2017-09-01] MEDS: MORPHINE SULFATE ER 15 MG TABLET PO SCH ×2 (08:32→21:20)
[2017-09-01] MEDS: PANTOPRAZOLE 40 MG/10 ML VIAL IVP SCH ×2 (08:32→21:20)
[2017-09-01] MEDS: SODIUM FERRIC GLUCONAT-SUCROSE 125 MG in SODIUM CHLORIDE 0.9% 100 ML IVPB SCH (09:12)
[2017-09-01 10:41] VITALS: BMI 17.9
--- NOTE | 2017-09-01 11:34 | P.PN ---
Subjective Progress Note Date: 09/01/17 Alton Martinez is a 62-year-old male presenting to [facility] emergency department for generalized weakness. Patient felt lightheaded. 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 Patient is currently undergoing radiation treatment to the right hip. Patient started having some bloody vomiting 2 days ago, he was evaluated in the emergency room hemoglobin was down to 62 units of red blood cells transfusion were ordered and patient was admitted to telemetry floor gastroenterology consultation was requested. Also oncology consultation was requested for follow -up. 08/31/2017 patient has had no further hematemesis. Did receive 2 units of blood. Hemoglobin is down at 7.5. Iron studies are low with a total iron of 13. Patient is scheduled for radiation treatment to the esophagus this afternoon. He did receive radiation to his hip yesterday. Patient was started on morphine for pain control as of yesterday. Still complaining of pain especially with swallowing. GI service has advance diet to a full liquid diet 09/01/2017 patient underwent radiation to the chest for his esophageal cancer. Patient has had no further episodes of vomiting. Pain is currently controlled with the MS Contin and liquid morphine as needed. Patient still having some pain with eating. Denies any chest pain or shortness of breath. Denies any nausea or vomiting. Was able to have a bowel movement. Denies any burning with urination. Patient is remained in sinus rhythm. We will transfer him to the oncology floor with no telemetry Objective - Vital Signs Vital signs: Vital Signs Temp 97.4 F L 09/01/17 08:00 Pulse 81 09/01/17 08:00 Resp 18 09/01/17 08:00 BP 123/75 09/01/17 08:00 Pulse Ox 97 09/01/17 08:00 Intake & Output 08/31/17 09/01/17 09/01/17 18:59 06:59 18:59 Intake Total 1523 1680 Output Total 300 Balance 1223 1680 Weight 54 kg 50.5 kg Intake: Intake, IV Titration 1680 Amount Sodium Chloride 0.9% 1, 1680 000 ml @ 110 mls/hr IV . Q9H6M [facility] Rx#:[id number] Oral 1523 Output: Urine 300 Other: Voiding Method Toilet Toilet Toilet Urinal Urinal Urinal # Voids 1 # Bowel Movements 0 - Exam Head normocephalic Neck supple Lungs clear to auscultation bilaterally no wheezing or crackles Heart regular rate and rhythm S1-S2, no rub or gallop Abdomen is soft nontender nondistended positive bowel sounds no hepatosplenomegaly Extremities no edema Neuro alert and orientated to 3 - Labs CBC & Chem 7: 09/01/17 06:35 09/01/17 06:35 Labs: Abnormal Lab Results - Last 24 Hours (Table) 09/01/17 09/01/17 Range/Units 06:35 06:35 RBC 2.92 L (4.30-5.90) m/uL Hgb 7.8 L (13.0-17.5) gm/dL Hct 25.3 L (39.0-53.0) % RDW 16.1 H (11.5-15.5) % Lymphocytes # 0.8 L (1.0-4.8) k/uL Chloride 110 H (98-107) mmol/L BUN 7 L (9-20) mg/dL Creatinine 0.61 L (0.66-1.25) mg/dL Calcium 8.0 L (8.4-10.2) mg/dL Total Bilirubin 0.1 L (0.2-1.3) mg/dL AST 13 L (17-59) U/L ALT 20 L (21-72) U/L Alkaline Phosphatase 29 L (38-126) U/L Total Protein 4.2 L (6.3-8.2) g/dL Albumin 2.4 L (3.5-5.0) g/dL Assessment and Plan Assessment: 1. Acute upper GI bleed with acute blood loss anemia likely secondary to esophageal mass hemorrhage. Patient is currently undergoing palliative chest radiation for the esophagus cancer. Patient required blood transfusion during this admission. Hemoglobin is 7.8. Patient is scheduled for another radiation treatment today 2. Esophageal cancer with metastatic disease to the hip. Patient has been undergoing radiation treatments to his right hip area. Oncology is planning to start chemo after radiation treatment. 3. Recent placement of a right subclavian port, patient has not started chemotherapy yet due to him being to ill 4. History of depression and generalized anxiety disorder 5. Iron deficiency anemia: Oncology has started IV iron Transfer patient to oncology floor, off of telemetry I performed an examination of the patient and discussed their management with the physician Virtual Classroom Manager. I have reviewed the Physician Virtual Classroom Manager's notes and agree with the documented findings and plan of care
[2017-09-01] MEDS: MORPHINE ORAL SOLN 10 MG/5 ML CUP PO PRN (13:36)
--- NOTE | 2017-09-01 16:53 | P.PN ---
Subjective Progress Note Date: 09/01/17 Principal diagnosis: Esophageal Alton seen in follow-up. He is doing good, no acute complaints Objective - Vital Signs Vital signs: Vital Signs Temp 98.1 F 09/01/17 14:01 Pulse 82 09/01/17 14:01 Resp 16 09/01/17 14:01 BP 112/74 09/01/17 14:01 Pulse Ox 98 09/01/17 14:01 Intake & Output 08/31/17 09/01/17 09/01/17 18:59 06:59 18:59 Intake Total 1523 1680 340 Output Total 300 300 Balance 1223 1680 40 Weight 54 kg 50.5 kg Intake: Intake, IV Titration 1680 100 Amount Sodium Chloride 0.9% 1, 1680 000 ml @ 110 mls/hr IV . Q9H6M [facility] Rx#:[id number] Sodium Ferric Gluconat- 100 Sucrose 125 mg In Sodium Chloride 0.9% 100 ml @ 100 mls/hr IVPB DAILY [facility] Rx#:[id number] Oral 1523 240 Output: Urine 300 300 Other: Voiding Method Toilet Toilet Toilet Urinal Urinal # Voids 1 1 # Bowel Movements 0 0 - Constitutional General appearance: Present: no acute distress, thin - EENT Eyes: Present: EOMI, PERRLA, poor dentition ENT: Present: NA/AT, normal oropharynx - Neck Neck: Present: normal ROM - Respiratory Respiratory: bilateral: wheezing (Expiratory, Anterior) - Cardiovascular Heart rate: 102 Rhythm: regular - Gastrointestinal General gastrointestinal: Present: normal bowel sounds, soft - Integumentary Integumentary: Present: pale - Neurologic Neurologic: Present: CNII-XII intact - Musculoskeletal Musculoskeletal: Present: gait normal, generalized weakness - Psychiatric Psychiatric: Present: A&O x's 3, appropriate affect, intact judgment & insight - Labs CBC & Chem 7: 09/01/17 06:35 09/01/17 06:35 Labs: Abnormal Lab Results - Last 24 Hours (Table) 09/01/17 09/01/17 Range/Units 06:35 06:35 RBC 2.92 L (4.30-5.90) m/uL Hgb 7.8 L (13.0-17.5) gm/dL Hct 25.3 L (39.0-53.0) % RDW 16.1 H (11.5-15.5) % Lymphocytes # 0.8 L (1.0-4.8) k/uL Chloride 110 H (98-107) mmol/L BUN 7 L (9-20) mg/dL Creatinine 0.61 L (0.66-1.25) mg/dL Calcium 8.0 L (8.4-10.2) mg/dL Total Bilirubin 0.1 L (0.2-1.3) mg/dL AST 13 L (17-59) U/L ALT 20 L (21-72) U/L Alkaline Phosphatase 29 L (38-126) U/L Total Protein 4.2 L (6.3-8.2) g/dL Albumin 2.4 L (3.5-5.0) g/dL Assessment and Plan (1) Acute blood loss anemia Current Visit: Yes Status: Acute Priority: High Code(s): D62 - ACUTE POSTHEMORRHAGIC ANEMIA SNOMED Code(s): 059548634 (2) Esophageal cancer Current Visit: Yes Status: Acute Priority: High Code(s): C15.9 - MALIGNANT NEOPLASM OF ESOPHAGUS, UNSPECIFIED SNOMED Code(s): 700124490 (3) Metastatic cancer Current Visit: Yes Status: Acute Code(s): C79.9 - SECONDARY MALIGNANT NEOPLASM OF UNSPECIFIED SITE SNOMED Code(s): 016313993 (4) Upper GI hemorrhage Current Visit: Yes Status: Acute Code(s): K92.2 - GASTROINTESTINAL HEMORRHAGE, UNSPECIFIED SNOMED Code(s): 65227852 Plan: Assessment and Recommendations 1. Metastatic Esophageal cancer - Bone - Status Post Palliative Radiation to Hip - Plan to begin treatment on 09/05/17 with concurrent radiation and chemotherapy 2. Acute Blood Loss Anemia - Malignant Related - Monitor Hgb - Status Post IV Iron Physician Attestation: I have completed the full history and physical of this patient, and agree with above dictation by Keli Jarvis NP. Dictated as a scribe
[2017-09-01] MEDS: MIRTAZAPINE 45 MG TABLET PO SCH (21:20)
[2017-09-02] MEDS: SODIUM CHLORIDE 0.9% 1,000 ML IV SCH ×2 (06:30→16:29)
[2017-09-02 07:51] LABS: Anisocytosis Slight; Basophils % (A) 0 %; Eosinophils # (A) 0.2 k/uL (0-0.7); Eosinophils % (A) 4 %; HCT 24.6 % (39.0-53.0); HGB 7.8 gm/dL (13.0-17.5); Hypochromasia Moderate; Lymphocytes # (A) 0.8 k/uL (1.0-4.8); Lymphocytes % (A) 13 %; MCH 27.3 pg (25.0-35.0); MCHC 31.8 g/dL (31.0-37.0); MCV 85.9 fL (80.0-100.0); Mean Platelet Volume 7.2; Monocytes # (A) 0.3 k/uL (0-1.0); Monocytes % (A) 5 %; Neutrophils # (A) 4.5 k/uL (1.3-7.7); Neutrophils % (A) 76 %; Platelet Count 300 k/uL (150-450); Poikilocytosis Slight; RBC 2.86 m/uL (4.30-5.90); RDW 16.2 % (11.5-15.5); WBC 5.9 k/uL (3.8-10.6)
[2017-09-02 08:03] LABS: ALT 22 U/L (21-72); AST 12 U/L (17-59); Albumin 2.4 g/dL (3.5-5.0); Alkaline Phosphatase 34 U/L (38-126); Anion Gap 7 mmol/L; Blood Urea Nitrogen 7 mg/dL (9-20); Calcium 8.2 mg/dL (8.4-10.2); Carbon Dioxide 27 mmol/L (22-30); Chloride 109 mmol/L (98-107); Glucose 84 mg/dL (74-99); Potassium 4.2 mmol/L (3.5-5.1); Sodium 143 mmol/L (137-145); Total Bilirubin 0.2 mg/dL (0.2-1.3); Total Protein 4.2 g/dL (6.3-8.2)
[2017-09-02] MEDS: MORPHINE ORAL SOLN 10 MG/5 ML CUP PO PRN ×3 (08:10→18:10)
[2017-09-02] MEDS: SODIUM FERRIC GLUCONAT-SUCROSE 125 MG in SODIUM CHLORIDE 0.9% 100 ML IVPB SCH (09:56)
[2017-09-02] MEDS: MORPHINE SULFATE ER 15 MG TABLET PO SCH ×2 (09:56→19:59)
[2017-09-02] MEDS: PANTOPRAZOLE 40 MG/10 ML VIAL IVP SCH ×2 (09:56→19:59)
--- NOTE | 2017-09-02 13:26 | P.PN ---
Subjective Patient is tolerating soft diet with no difficulty. No further bleeding. Hemoglobin is stable. No events overnight. Objective - Vital Signs Vital signs: Vital Signs Temp 98.6 F 09/02/17 07:52 Pulse 87 09/02/17 07:52 Resp 18 09/02/17 07:52 BP 112/77 09/02/17 07:52 Pulse Ox 96 09/02/17 07:52 Intake & Output 09/01/17 09/02/17 09/02/17 18:59 06:59 18:59 Intake Total 340 Output Total 300 Balance 40 Weight 50.5 kg 55 kg Intake: Intake, IV Titration 100 Amount Sodium Ferric Gluconat- 100 Sucrose 125 mg In Sodium Chloride 0.9% 100 ml @ 100 mls/hr IVPB DAILY [facility] Rx#:[id number] Oral 240 Output: Urine 300 Other: Voiding Method Toilet Toilet Toilet # Voids 1 2 # Bowel Movements 0 - Exam General: The patient is awake and alert, in no distress Eye: there is normal conjunctiva bilaterally. Neck: The neck is supple, there is no JVD. Cardiovascular: Normal S1-S2, no S3-S4, no murmurs. Respiratory: Lungs clear to auscultation bilaterally Gastrointestinal: Abdomen is soft, nontender Musculoskeletal: There is no pedal edema. Neurological:. Speech is normal. Skin: Skin is warm and dry - Labs CBC & Chem 7: 09/02/17 06:56 09/02/17 06:56 Labs: Abnormal Lab Results - Last 24 Hours (Table) 09/02/17 09/02/17 Range/Units 06:56 06:56 RBC 2.86 L (4.30-5.90) m/uL Hgb 7.8 L (13.0-17.5) gm/dL Hct 24.6 L (39.0-53.0) % RDW 16.2 H (11.5-15.5) % Lymphocytes # 0.8 L (1.0-4.8) k/uL Chloride 109 H (98-107) mmol/L BUN 7 L (9-20) mg/dL Creatinine 0.65 L (0.66-1.25) mg/dL Calcium 8.2 L (8.4-10.2) mg/dL AST 12 L (17-59) U/L Alkaline Phosphatase 34 L (38-126) U/L Total Protein 4.2 L (6.3-8.2) g/dL Albumin 2.4 L (3.5-5.0) g/dL Assessment and Plan Assessment: 1. Acute upper GI bleed with acute blood loss anemia likely secondary to esophageal mass hemorrhage. Patient is currently undergoing palliative chest radiation for the esophagus cancer. Patient required blood transfusion during this admission. Hemoglobin stable now. 2. Esophageal cancer with metastatic disease to the hip. Patient has been undergoing radiation treatments to his right hip area. Oncology is planning to start chemo after radiation treatment. 3. Recent placement of a right subclavian port, patient has not started chemotherapy yet due to him being to ill 4. History of depression and generalized anxiety disorder 5. Iron deficiency anemia: Oncology has started IV iron - Scheduled for another dose of IV iron tomorrow - Awaiting oncology clearance for discharge
[2017-09-02] MEDS: MIRTAZAPINE 45 MG TABLET PO SCH (19:59)
[2017-09-03] MEDS: MORPHINE ORAL SOLN 10 MG/5 ML CUP PO PRN (00:32)
[2017-09-03] MEDS: SODIUM CHLORIDE 0.9% 1,000 ML IV SCH ×3 (00:40→19:14)
[2017-09-03 07:12] LABS: Anisocytosis Slight; Basophils % (A) 0 %; Eosinophils # (A) 0.3 k/uL (0-0.7); Eosinophils % (A) 5 %; HCT 25.2 % (39.0-53.0); HGB 7.7 gm/dL (13.0-17.5); Hypochromasia Marked; Lymphocytes # (A) 0.7 k/uL (1.0-4.8); Lymphocytes % (A) 14 %; MCH 26.3 pg (25.0-35.0); MCHC 30.4 g/dL (31.0-37.0); MCV 86.6 fL (80.0-100.0); Mean Platelet Volume 7.8; Monocytes # (A) 0.3 k/uL (0-1.0); Monocytes % (A) 6 %; Neutrophils # (A) 3.7 k/uL (1.3-7.7); Neutrophils % (A) 73 %; Platelet Count 287 k/uL (150-450); Poikilocytosis Slight; RBC 2.91 m/uL (4.30-5.90); RDW 16.5 % (11.5-15.5)
[2017-09-03 07:34] LABS: ALT 19 U/L (21-72); AST 11 U/L (17-59); Albumin 2.4 g/dL (3.5-5.0); Alkaline Phosphatase 33 U/L (38-126); Anion Gap 5 mmol/L; Blood Urea Nitrogen 5 mg/dL (9-20); Carbon Dioxide 28 mmol/L (22-30); Chloride 110 mmol/L (98-107); Glucose 86 mg/dL (74-99); Potassium 4.1 mmol/L (3.5-5.1); Sodium 143 mmol/L (137-145); Total Bilirubin 0.2 mg/dL (0.2-1.3); Total Protein 4.2 g/dL (6.3-8.2)
[2017-09-03] MEDS: MORPHINE SULFATE ER 15 MG TABLET PO SCH ×2 (08:14→21:00)
[2017-09-03] MEDS: SODIUM FERRIC GLUCONAT-SUCROSE 125 MG in SODIUM CHLORIDE 0.9% 100 ML IVPB SCH (08:15)
[2017-09-03] MEDS: PANTOPRAZOLE 40 MG/10 ML VIAL IVP SCH ×2 (08:16→21:00)
--- NOTE | 2017-09-03 12:54 | P.PN ---
Subjective Progress Note Date: 09/03/17 No events overnight Objective - Vital Signs Vital signs: Vital Signs Temp 98.0 F 09/03/17 07:45 Pulse 85 09/03/17 07:45 Resp 16 09/03/17 07:45 BP 110/69 09/03/17 07:45 Pulse Ox 96 09/03/17 07:45 Intake & Output 09/02/17 09/03/17 09/03/17 18:59 06:59 18:59 Weight 56 kg Other: Voiding Method Toilet Toilet Toilet # Voids 3 1 # Bowel Movements 1 - Exam General: The patient is awake and alert, in no distress Eye: there is normal conjunctiva bilaterally. Neck: The neck is supple, there is no JVD. Cardiovascular: Normal S1-S2, no S3-S4, no murmurs. Respiratory: Lungs clear to auscultation bilaterally Gastrointestinal: Abdomen is soft, nontender Musculoskeletal: There is no pedal edema. Neurological:. Speech is normal. Skin: Skin is warm and dry - Labs CBC & Chem 7: 09/03/17 06:45 09/03/17 06:45 Labs: Abnormal Lab Results - Last 24 Hours (Table) 09/03/17 09/03/17 Range/Units 06:45 06:45 RBC 2.91 L (4.30-5.90) m/uL Hgb 7.7 L (13.0-17.5) gm/dL Hct 25.2 L (39.0-53.0) % MCHC 30.4 L (31.0-37.0) g/dL RDW 16.5 H (11.5-15.5) % Lymphocytes # 0.7 L (1.0-4.8) k/uL Chloride 110 H (98-107) mmol/L BUN 5 L (9-20) mg/dL Creatinine 0.65 L (0.66-1.25) mg/dL Calcium 8.0 L (8.4-10.2) mg/dL AST 11 L (17-59) U/L ALT 19 L (21-72) U/L Alkaline Phosphatase 33 L (38-126) U/L Total Protein 4.2 L (6.3-8.2) g/dL Albumin 2.4 L (3.5-5.0) g/dL Assessment and Plan Assessment: 1. Acute upper GI bleed with acute blood loss anemia likely secondary to esophageal mass hemorrhage. Patient is currently undergoing palliative chest radiation for the esophagus cancer. Patient required blood transfusion during this admission. Hemoglobin stable now. 2. Esophageal cancer with metastatic disease to the hip. Patient has been undergoing radiation treatments to his right hip area. Oncology is planning to start chemo after radiation treatment. 3. Recent placement of a right subclavian port, patient has not started chemotherapy yet due to him being to ill 4. History of depression and generalized anxiety disorder 5. Iron deficiency anemia: Oncology has started IV iron - Awaiting oncology/radiation oncology clearance for discharge possibly tomorrow
[2017-09-03] MEDS ORDERED: NICOTINE 14MG/24HR PATCH TRANSDERM STA (19:23)
[2017-09-03] MEDS: ALPRAZolam 0.25 MG TAB PO PRN (19:23)
[2017-09-03] MEDS: MIRTAZAPINE 45 MG TABLET PO SCH (21:01)
[2017-09-04] MEDS: SODIUM CHLORIDE 0.9% 1,000 ML IV SCH ×2 (04:11→09:11)
[2017-09-04 07:55] LABS: Anisocytosis Slight; Basophils % (A) 0 %; Eosinophils # (A) 0.4 k/uL (0-0.7); Eosinophils % (A) 6 %; HCT 26.5 % (39.0-53.0); HGB 8.2 gm/dL (13.0-17.5); Hypochromasia Marked; Lymphocytes # (A) 0.7 k/uL (1.0-4.8); Lymphocytes % (A) 11 %; MCH 26.8 pg (25.0-35.0); MCHC 30.9 g/dL (31.0-37.0); MCV 86.7 fL (80.0-100.0); Mean Platelet Volume 7.7; Monocytes # (A) 0.3 k/uL (0-1.0); Monocytes % (A) 6 %; Neutrophils # (A) 4.4 k/uL (1.3-7.7); Neutrophils % (A) 75 %; Platelet Count 325 k/uL (150-450); Poikilocytosis Slight; RBC 3.05 m/uL (4.30-5.90); RDW 17.2 % (11.5-15.5); WBC 5.9 k/uL (3.8-10.6)
[2017-09-04 08:16] LABS: ALT 18 U/L (21-72); AST 12 U/L (17-59); Albumin 2.7 g/dL (3.5-5.0); Alkaline Phosphatase 36 U/L (38-126); Anion Gap 8 mmol/L; Blood Urea Nitrogen 7 mg/dL (9-20); Calcium 8.5 mg/dL (8.4-10.2); Carbon Dioxide 29 mmol/L (22-30); Chloride 106 mmol/L (98-107); Glucose 85 mg/dL (74-99); Potassium 4.1 mmol/L (3.5-5.1); Sodium 143 mmol/L (137-145); Total Bilirubin 0.2 mg/dL (0.2-1.3); Total Protein 4.6 g/dL (6.3-8.2)
[2017-09-04] MEDS: MORPHINE SULFATE ER 15 MG TABLET PO SCH (09:15)
[2017-09-04] MEDS: PANTOPRAZOLE 40 MG/10 ML VIAL IVP SCH (09:15)
[2017-09-04 09:16] VITALS: BP 142/87; PULSE 98; RESP 16; TEMP 98.8
[2017-09-04] MEDS ORDERED: PANTOPRAZOLE 40 MG TABLET PO SCH (09:30)
--- NOTE | 2017-09-04 13:23 | P.DS ---
Providers Date of admission: 08/29/17 19:22 Expected date of discharge: 09/04/17 Attending physician: Samantha Roque Consults: 08/29/17 19:23 Consult Physician Urgent Consulting Provider: J Luis Castellon Consult Reason/Comments: oncological care Do you want consulting provider notified?: Already Contacted 08/30/17 11:03 Consult Physician Routine Consulting Provider: Alton Hanson Consult Reason/Comments: evaluate for palliative radiation, esophagus ca, symptomatic Do you want consulting provider notified?: Already Contacted Primary care physician: Sri Acosta Hospital Course: Discharge diagnosis 1. Acute upper GI bleed with acute blood loss anemia likely secondary to esophageal mass hemorrhage. Patient is currently undergoing palliative chest radiation for the esophagus cancer. Patient required blood transfusion during this admission. Hemoglobin stable now at 8.2 2. Esophageal cancer with metastatic disease to the hip. Patient has been undergoing radiation treatments to his right hip area. Oncology is planning to start chemo after radiation treatment. 3. Recent placement of a right subclavian port, patient has not started chemotherapy yet due to him being to ill 4. History of depression and generalized anxiety disorder 5. Iron deficiency anemia: Patient given IV iron during this admission 6. Nicotine dependence discussed smoking cessation for greater than 3 minutes. Patient given prescription for nicotine patch Hospital course Alton Martinez is a 62-year-old male presenting to [facility] emergency department for generalized weakness. Patient felt lightheaded. 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 Patient is currently undergoing radiation treatment to the right hip. Patient started having some bloody vomiting 2 days ago, he was evaluated in the emergency room hemoglobin was down to 62 units of red blood cells transfusion were ordered and patient was admitted to telemetry floor gastroenterology consultation was requested. Also oncology consultation was requested for follow -up. Patient was seen by oncology and radiation oncology services. Also evaluated by GI service. There is no need for EGD due to the fact that his acute blood loss anemia and hematemesis was likely related to esophageal mass hemorrhage. Patient's bleeding did resolve. He has been undergoing radiation treatments to the chest for the esophageal cancer. He is tolerating regular diet. Pain is improving. And he is not requiring the morphine. Patient has Percocet at home that will likely control his pain medication. Patient will be following up with oncology and radiation oncology for continuation of radiation treatments as well as starting chemotherapy. Patient's been cleared by consulting physicians for discharge. Patient is medically safe for discharge I performed an examination of the patient and discussed their management with the physician Chief Media Officer. I have reviewed the Physician Chief Media Officer's notes and agree with the documented findings and plan of care Patient Condition at Discharge: Stable Plan - Discharge Summary Discharge Rx Participant: No New Discharge Prescriptions: New Prochlorperazine [Compazine] 10 mg PO Q6H PRN #50 tab PRN Reason: Nausea Nicotine 14Mg/24Hr Patch [Habitrol] 1 patch TRANSDERM Q24H #30 patch Pantoprazole [Protonix] 40 mg PO AC-BID #60 tablet.dr Continue Albuterol Inhaler [Ventolin Hfa Inhaler] 1 - 2 puff INHALATION Q6HR PRN PRN Reason: Shortness Of Breath ALPRAZolam [Xanax] 0.25 mg PO BID PRN PRN Reason: Anxiety Mirtazapine [Remeron] 45 mg PO HS oxyCODONE-APAP 10-325MG [Percocet 10-325 mg] 1 tab PO Q6HR PRN PRN Reason: Pain Diazepam [Valium] 10 mg PO Q8H PRN PRN Reason: Anxiety Dexamethasone See Taper PO DIRECTED Discontinued Omeprazole [PriLOSEC] 40 mg PO DAILY Discharge Medication List Albuterol Inhaler [Ventolin Hfa Inhaler] 1 - 2 puff INHALATION Q6HR PRN [History] ALPRAZolam [Xanax] 0.25 mg PO BID PRN 08/22/17 [History] Dexamethasone See Taper PO DIRECTED 08/29/17 [History] Diazepam [Valium] 10 mg PO Q8H PRN 08/29/17 [History] Mirtazapine [Remeron] 45 mg PO HS 08/29/17 [History] oxyCODONE-APAP 10-325MG [Percocet 10-325 mg] 1 tab PO Q6HR PRN 08/29/17 [History ] Prochlorperazine [Compazine] 10 mg PO Q6H PRN #50 tab 08/30/17 [Rx] Nicotine 14Mg/24Hr Patch [Habitrol] 1 patch TRANSDERM Q24H #30 patch 09/04/17 [ Rx] Pantoprazole [Protonix] 40 mg PO AC-BID #60 tablet. 09/04/17 [Rx] Follow up Appointment(s)/Referral(s): Chetan Pedroza MD [STAFF PHYSICIAN] - 09/12/17 11:45 am Sri Acosta MD [Primary Care Provider] - 3 Days Activity/Diet/Wound Care/Special Instructions: Follow up with Radiation treatments as scheduled per Dr. Hanson Diet: regular activity: as tolerated Discharge Disposition: HOME SELF-CARE
[2017-09-04] MEDS ORDERED: ONDANSETRON 4 MG TAB PO STA (13:53)
--- NOTE | 2017-09-04 14:50 | P.PN ---
Subjective Progress Note Date: 09/04/17 Principal diagnosis: coffee ground emesis, metastatic esophageal adenocarcinoma Patient seen briefly in follow-up, he is being discharged today. He has completed radiation to his hip for metastatic disease, he has started palliative radiation for esophageal malignancy hemorrhage. Patient states no hematoemesis since admission, he is tolerating oral intake in small amounts, he is not considering PEG tube yet. He is not currently in any pain, he is independently ambulatory, he has assistance from family at home. Objective - Vital Signs Vital signs: Vital Signs Temp 98.8 F 09/04/17 08:43 Pulse 98 09/04/17 08:43 Resp 16 09/04/17 08:43 BP 142/87 09/04/17 08:43 Pulse Ox 99 09/04/17 08:43 Intake & Output 09/03/17 09/04/17 09/04/17 18:59 06:59 18:59 Intake Total 350 Balance 350 Weight 57.5 kg Intake: Oral 350 Other: Voiding Method Toilet Toilet Toilet # Voids 4 1 - Exam Patient is visualized ambulating independently. No respiratory distress, respirations are even and unlabored. Patient is alert and oriented to self place time and he does understand most of his situation. - Constitutional General appearance: Present: cooperative, no acute distress, thin - Labs CBC & Chem 7: 09/04/17 07:26 09/04/17 07:26 Labs: Abnormal Lab Results - Last 24 Hours (Table) 08/29/17 09/04/17 09/04/17 Range/Units 16:27 07:26 07:26 RBC 3.05 L (4.30-5.90) m/uL Hgb 8.2 L (13.0-17.5) gm/dL Hct 26.5 L (39.0-53.0) % MCHC 30.9 L (31.0-37.0) g/dL RDW 17.2 H (11.5-15.5) % Lymphocytes # 0.7 L (1.0-4.8) k/uL BUN 7 L (9-20) mg/dL AST 12 L (17-59) U/L ALT 18 L (21-72) U/L Alkaline Phosphatase 36 L (38-126) U/L Total Protein 4.6 L (6.3-8.2) g/dL Albumin 2.7 L (3.5-5.0) g/dL Crossmatch See Detail Assessment and Plan (1) Acute blood loss anemia Narrative/Plan: Hemorrhage from esophageal malignancy. Pt is receiving palliative radiation to the esophagus for the same. Bleeding under control at this time, hemoglobin and hematocrit are stable, patient has received iron. I Current Visit: Yes Status: Acute Priority: High Code(s): D62 - ACUTE POSTHEMORRHAGIC ANEMIA SNOMED Code(s): 700358070 (2) Esophageal cancer Narrative/Plan: Plan is to begin chemotherapy post palliative radiation. There is an appointment in the chart for Patient to see Dr. Pedroza prior to initiating chemo. Current Visit: Yes Status: Acute Priority: High Code(s): C15.9 - MALIGNANT NEOPLASM OF ESOPHAGUS, UNSPECIFIED SNOMED Code(s): 930920609 (3) Iron deficiency anemia Narrative/Plan: Patient has been supplemented with parenteral iron. Iron studies to be rechecked in about 4 weeks with ongoing supplementation as needed. Current Visit: Yes Status: Acute Priority: High Code(s): D50.9 - IRON DEFICIENCY ANEMIA, UNSPECIFIED SNOMED Code(s): 53229663 Plan: Did discuss the case briefly with Internal Medicine PA. It is okay from a Hematology/Oncology standpoint to be discharged once he is been cleared by internal medicine and all other consulting Physicians.
[2017-09-04] MEDS ORDERED: NICOTINE 14MG/24HR PATCH TRANSDERM SCH (18:00)
== END 2017-09-04 14:30 | disposition home or self-care (01) | DRG 375 ==
LOC: EC 15:55 → 6SEL 19:22 → 5ONC 09-01 12:45
PROVIDERS: ADMIT Internal Medicine; ATTEND Internal Medicine
PROC: 30233N1 Transfusion of Nonautologous Red Blood Cells into Peripheral Vein, Percutaneous Approach (ICD-10-PCS; 2017-08-29)
PROC: DD001ZZ Beam Radiation of Esophagus using Photons 1 - 10 MeV (ICD-10-PCS; principal; 2017-08-30)
PROC: DP091ZZ Beam Radiation of Femur using Photons 1 - 10 MeV (ICD-10-PCS; 2017-08-30)
DX: C16.0 Malignant neoplasm of cardia (principal); C77.1 Secondary and unspecified malignant neoplasm of intrathoracic lymph nodes; C79.51 Secondary malignant neoplasm of bone; D62 Acute posthemorrhagic anemia; K92.0 Hematemesis; F10.10 Alcohol abuse, uncomplicated; F17.210 Nicotine dependence, cigarettes, uncomplicated; F32.9 Major depressive disorder, single episode, unspecified; F41.1 Generalized anxiety disorder; J44.9 Chronic obstructive pulmonary disease, unspecified; K21.9 Gastro-esophageal reflux disease without esophagitis; K22.70 Barrett's esophagus without dysplasia; R13.10 Dysphagia, unspecified; Z79.899 Other long term (current) drug therapy; Z80.9 Family history of malignant neoplasm, unspecified; Z82.3 Family history of stroke
CPT/HCPCS: 36415; 71046; 80053; 81003; 82140; 82550; 82553; 82607; 82728; 82747; 83540; 83550; 83735; 84100; 84439; 84443; 84481; 84484; 85025; 85045; 85610; 85730; 86850; 86900; 86901; 86920; 93005; 96360; 99285

== ENCOUNTER 2017-10-03 10:32 | Day surgery (SDC) | payer OTHER ==
[2017-09-28 14:42] VITALS: BMI 17.2
[~2017-10-03 10:32] MED LIST changes: -HEPARIN SODIUM,PORCINE 5,000 UNIT/ML 1 ML VIAL SQ ONE; -HYDROmorphone 0.5 MG/0.5 ML SYRINGE IVP PRN; +MIDAZOLAM 2 MG/2 ML VIAL IV PRN; -MORPHINE SULFATE 4 MG/ML SYRINGE IV PRN; -ONDANSETRON 4 MG/2 ML VIAL IVP PRN; -Pre Op ABX Message 1 EACH MISC MISCELLANE ONE; +fentaNYL (PF) 50 MCG/ML 2 ML AMP IV PRN
[2017-10-03 11:55] VITALS: TEMP 98.4
[2017-10-03] MEDS ORDERED: PROPOFOL 10 MG/ML 20 ML VIAL IV ONE (12:12)
[2017-10-03] MEDS ORDERED: ceFAZolin 1,000 MG VIAL ONE (12:12)
[2017-10-03] MEDS ORDERED: MIDAZOLAM 2 MG/2 ML VIAL ONE (12:12)
[2017-10-03] MEDS ORDERED: LIDOCAINE 1% INJ 10MG/ML (20 ML MDV) ONE (12:12)
[2017-10-03] MEDS ORDERED: fentaNYL (PF) 50 MCG/ML 2 ML AMP ONE (12:12)
--- NOTE | 2017-10-03 12:59 | P.PCN ---
Date of Procedure: 10/03/17 Procedure(s) Performed: Procedure: Esophagogastroduodenoscopy and placement of gastrostomy feeding tube PEG. Preoperative diagnosis: History of esophageal cancer S/P radiation/chemotherapy with weight and nutritional issues. Postoperative diagnosis: 1. 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 2. Successful placement of [employer] 20-[place] gastrostomy feeding tube. Preparation sedation: Was provided by anesthesia. Brief clinical history: The patient is a 62 or male who was diagnosed in July of this year with esophageal cancer. He was found to have a mass in segment of Delgado's esophagus in July of this year. The patient received radiation therapy and chemotherapy. He has been having nutritional issues and failure to do a. This evaluation was requested to assess his cancer and to place a feeding tube for enteral nutritional support. Procedure: With the patient on his left lateral decubitus position and after informed consent and adequate sedation, I passed the Olympus-GIF 160 video upper endoscope through the cricopharyngeus down the esophagus. The amilcar-GE junction was around 25 cm from the incisors and the tubular esophagus continued for around 10-11 cm then we encounter a hiatal hernia. The Delgado's segment showed friability and was carpeted with whitish exudation but I did not see actual mass or tumor as previously described. There was no hesitation to the advancement of the endoscope in that segment. The endoscope was then passed into the stomach which was insufflated with air and inspected in detail including the retroflex view in the cardia. Finally, the endoscope was passed through the pylorus into the duodenum. No obvious abnormalities were seen in the stomach or duodenum. At this point, I proceeded to place a gastrostomy feeding tube. The skin was cleansed with Betadine. 1% Xylocaine was used for local anesthesia. A small incision was made using #11 blade. A needle trocar was then passed through the incision into the stomach. Once in the stomach, a guidewire was passed which was captured with the snare which was advanced into the stomach through the operating channel of the endoscope. The snare and the guidewire were then removed by withdrawing the endoscope. The [employer] 20-[place] gastrostomy feeding tube was then used and was attached to the guidewire then pulled into the stomach in the usual fashion until it emerged through the abdominal incision. I advanced the endoscope back into the stomach to demonstrate the adequacy of the placement of the tube. 1 g Kefzol was given in the Perioperative Period. The patient tolerated the procedure well. Plan: I summarized the findings to the patient and his brother. Will consult nursing home social worker to arrange for tube feeding. He will follow up with oncology and his primary care as planned.
[2017-10-03 13:22] VITALS: RESP 18
[2017-10-03 14:23] VITALS: BP 106/53; PULSE 68
== END 2017-10-03 14:53 | disposition home or self-care (01) ==
LOC: ORWHC2ENDO 10:32
DX: K22.70 Barrett's esophagus without dysplasia (principal); K44.9 Diaphragmatic hernia without obstruction or gangrene; Z85.01 Personal history of malignant neoplasm of esophagus; Z92.3 Personal history of irradiation; Z92.21 Personal history of antineoplastic chemotherapy; K21.9 Gastro-esophageal reflux disease without esophagitis; J44.9 Chronic obstructive pulmonary disease, unspecified; Z79.891 Long term (current) use of opiate analgesic; Z79.899 Other long term (current) drug therapy; Z72.0 Tobacco use
CPT/HCPCS: 43246; J2250; J0690; J2001; J3010; J2704; B4087

== ENCOUNTER → 2017-12-04 | Outpatient (CLI) | payer OTHER ==
--- NOTE | 2017-12-04 16:50 | ECHOF ---
Referral Reason:C15.5 Esophogeal CA Z01.818 Chemo MEASUREMENTS -------- HEIGHT: 167.6 cm WEIGHT: 45.4 kg BP: IVSd: 0.9 cm (0.6 - 1.1) LVIDd: 3.1 cm (3.9 - 5.3) LVPWd: 0.9 cm (0.6 - 1.1) IVSs: 1.1 cm LVIDs: 2.5 cm LVPWs: 1.4 cm Ao Diam: 4.4 cm (2.0 - 3.7) AV Cusp: 1.7 cm (1.5 - 2.6) LA Diam: 1.9 cm (2.7 - 3.8) MV E Elieser: 0.51 m/s MV DecT: 159 ms MV A Elieser: 0.67 m/s MV E/A Ratio: 0.76 RAP: 5.00 mmHg RVSP: 34.76 mmHg FINDINGS -------- Sinus rhythm. This was a technically good study. The left ventricular size is normal. Left ventricular wall thickness is normal. Overall left vent ricular systolic function is low-normal with, an EF between 50 - 55 %. The right ventricle is normal in size. The left atrium is normal in size. The right atrium is normal in size. The aortic valve is trileaflet and appears structurally normal. Mild mitral regurgitation is present. Moderate tricuspid regurgitation present. The right ventricular systolic pressure, as measured by D oppler, is 34.76mmHg. Pulmonic valve appears structurally normal. The aortic root is dilated measuring 4.4 cm The pericardium is normal. CONCLUSIONS -------- 1. Sinus rhythm. 2. This was a technically good study. 3. The left ventricular size is normal. 4. Left ventricular wall thickness is normal. 5. Overall left ventricular systolic function is low-normal with, an EF between 50 - 55 %. 6. The right ventricle is normal in size. 7. The left atrium is normal in size. 8. The right atrium is normal in size. 9. The aortic valve is trileaflet and appears structurally normal. 10. Mild mitral regurgitation is present. 11. Moderate tricuspid regurgitation present. 12. The right ventricular systolic pressure, as measured by Doppler, is 34.76mmHg. 13. Pulmonic valve appears structurally normal. 14. The aortic root is dilated measuring 4.4 cm 15. The pericardium is normal. FUR BLENDER: Deborah Cunningham RDCS
== END | disposition home or self-care (01) ==
LOC: RADECHMAIN 13:07
PROVIDERS: ATTEND Internal Medicine Hematology & Oncology
DX: I08.1 Rheumatic disorders of both mitral and tricuspid valves (principal)
CPT/HCPCS: 93306

== ENCOUNTER → 2017-12-05 | Outpatient (CLI) | payer OTHER ==
--- NOTE | 2017-12-05 15:46 | XR ---
EXAMINATION TYPE: XR femur RT DATE OF EXAM: 12/05/2017 COMPARISON: NONE HISTORY: Pain TECHNIQUE: 2 views submitted FINDINGS: There is moderate concentric narrowing the joint space. Diffuse osteopenia. No acute fractu re. There is arthropathy of the hip joints. Heterogeneous area of density along the greater trochante r appears to correspond to the MRI abnormality. IMPRESSION: No acute fracture. There is arthropathy of the hip joints. Heterogeneous area of density along the greater trochanter appears to correspond to the MRI abnormality.
== END | disposition home or self-care (01) ==
LOC: RADXRMAIN 14:57
PROVIDERS: ATTEND Nurse Practitioner Adult Health
DX: M16.11 Unilateral primary osteoarthritis, right hip (principal); C15.5 Malignant neoplasm of lower third of esophagus; G89.3 Neoplasm related pain (acute) (chronic); D50.9 Iron deficiency anemia, unspecified; Z71.3 Dietary counseling and surveillance

== ENCOUNTER → 2017-12-09 | Outpatient (CLI) | payer OTHER ==
--- NOTE | 2017-12-10 12:24 | PE ---
EXAMINATION TYPE: PET CT fusion skull to thigh DATE OF EXAM: 12/09/2017 COMPARISON: No prior CTs at this location. Prior PET/CT: 07/29/2017 HISTORY: Esophageal cancer, follow-up TECHNIQUE: Following the intravenous administration of 11.64 mCi of F-18 FDG, whole body images are performed from the skull base to the midthigh. Images are reviewed on the computer in the coronal, a xial, and sagittal planes. Reconstructed rotating images are created on independent workstation and reviewed on the computer. A localization and attenuation correction CT is performed in conjunction with the PET scan. DLP: 147.80 mGycm SCAN: Subsequent Scan Blood glucose: 87 mg/dL Average Mediastinum SUV: 1.45 Average Liver SUV: 1.99 FINDINGS: NECK: No suspicious uptake. THORAX: No suspicious uptake. No mediastinal lymphadenopathy is evident. Suspicious uptake within the gastroesophageal junction is not identified. ABDOMEN: There appears to be a focus of radiotracer accumulation within the superior left lobe liver adjacent to the diaphragm. PET image 122, SUV 3.44. Small focus of radiotracer accumulation is within the anterior right tip of the liver, image 158, SUV 3.64. PELVIS: No suspicious soft tissue uptake. OSSEOUS STRUCTURES: There is a large focus of radiotracer accumulation within the posterior right pro ximal diaphyseal femur compatible with a metastatic lesion. Additionally, there is diffuse increased uptake within the osseous structures. This would include the ileum, vertebral bodies of the lumbar sp ine. Metastatic disease is not excluded. Additionally, there is radiotracer accumulation within the u pper thoracic vertebral bodies the anterior right clavicle the anterior right glenoid, left glenoid a nd within the bilateral proximal humeri. This could be from radiation change. Metastatic disease is n ot excluded. LOCALIZATION CT: There is diffuse thickening of the distal esophagus which can related to the patient 's reported esophageal cancer. Marked uptake on PET scan however is not identified as expected. PEG t ube is present. There appears to be a large cystlike area within the posterior right hemipelvis which has radiotracer likely is a urinary bladder diverticulum. COMPARISON: The radiotracer through the mid to distal esophagus has markedly improved over the interv al. Only faint uptake is identified on the rotating images. Previous additional mediastinal uptake is not evident. IMPRESSION: 1. Significant improvement of radiotracer through the esophagus. Radiotracer appears closer to backgr ound on the current examination within the esophagus. 2. Focal radiotracer accumulation within the right femur suspicious for a metastatic lesion. 3. Additional uptake within the pelvis lower lumbar spine and upper cervical and thoracic spine. Rose static disease is not excluded. Reaction to chemotherapy and radiation could be considered. 4. Previous suspected mediastinal lymph nodes are resolved.
== END | disposition home or self-care (01) ==
LOC: RADPETMAIN 10:11
PROVIDERS: ATTEND Internal Medicine Hematology & Oncology
DX: R93.7 Abnormal findings on diagnostic imaging of other parts of musculoskeletal system (principal); C15.5 Malignant neoplasm of lower third of esophagus
CPT/HCPCS: 78815; A9552